=== PATIENT | male | born 1965 | race Caucasian/White ===

== ENCOUNTER 2018-10-01 23:42 | Inpatient (IN) | payer MEDICARE, OTHER ==
[2018-10-01] MEDS ORDERED: ONDANSETRON 4 MG/2 ML VIAL IVP STA (23:50)
[2018-10-01] MEDS ORDERED: SODIUM CHLORIDE 0.9% 2,000 ML IV STA (23:50)
[2018-10-02 00:26] LABS: Basophils # (A) 0.1 k/uL (0-0.2); Basophils % (A) 0 %; Eosinophils # (A) 0.1 k/uL (0-0.7); Eosinophils % (A) 0 %; HCT 43.5 % (39.0-53.0); HGB 13.6 gm/dL (13.0-17.5); Hypochromasia Slight; Lymphocytes # (A) 0.7 k/uL (1.0-4.8); Lymphocytes % (A) 3 %; MCH 28.5 pg (25.0-35.0); MCHC 31.2 g/dL (31.0-37.0); MCV 91.2 fL (80.0-100.0); Mean Platelet Volume 8.5; Monocytes # (A) 0.8 k/uL (0-1.0); Monocytes % (A) 3 %; Neutrophils # (A) 20.7 k/uL (1.3-7.7); Neutrophils % (A) 93 %; Platelet Count 416 k/uL (150-450); RBC 4.77 m/uL (4.30-5.90); RDW 13.3 % (11.5-15.5); WBC 22.4 k/uL (3.8-10.6)
[2018-10-02 00:29] LABS: Glucose,Whole Blood >600 mg/dL (75-99)
[2018-10-02 00:35] LABS: ALT 38 U/L (21-72); AST 18 U/L (17-59); Albumin 3.9 g/dL (3.5-5.0); Alkaline Phosphatase 144 U/L (38-126); Amylase 42 U/L (30-110); Blood Urea Nitrogen 52 mg/dL (9-20); Calcium 9.3 mg/dL (8.4-10.2); Chloride 95 mmol/L (98-107); Lipase 164 U/L (23-300); Sodium 132 mmol/L (137-145); Total Bilirubin 0.5 mg/dL (0.2-1.3); Total Protein 6.2 g/dL (6.3-8.2)
--- NOTE | 2018-10-02 00:46 | XR ---
EXAM: XR Abdomen, 2 Views CLINICAL HISTORY: Pain TECHNIQUE: Frontal view of the abdomen/pelvis with upright view of the abdomen. COMPARISON: No relevant prior studies available. FINDINGS: Intraperitoneal space: No free air. Gastrointestinal tract: A few prominent air-filled loops of small bowel seen throughout the abdomen measured to 3.1 cm. [id number] amount of stool throughout the colon. Bones/joints: Unremarkable. Vasculature: Vascular calcifications. IMPRESSION: A few prominent air-filled loops of small bowel seen throughout the abdomen measured to 3.1 cm. Findings may represent small bowel ileus or small bowel obstruction.
--- NOTE | 2018-10-02 00:56 | ED ---
Nausea/Vomiting/Diarrhea HPI - General Chief complaint: Nausea/Vomiting/Diarrhea Stated complaint: hyperglycemia Time Seen by Provider: 10/01/18 23:50 Source: EMS Mode of arrival: EMS Limitations: no limitations - History of Present Illness Initial comments: Freddie is a type I IDDM who presents to the ED today via EMS for evaluation of nausea, vomiting and uncontrolled blood sugars. Patient reports he has been experiencing nausea and vomiting for 4 days, he reports feeling like he got hit by a truck today which prompted him to come to the ER for further evaluation. Patient cannot recall the last time he was in DKA, reports that his sugars are usually well controlled. - Related Data Allergies Allergy/AdvReac Type Severity Reaction Status Date / Time No Known Allergies Allergy Verified 10/01/18 23:49 Review of Systems ROS Statement: Those systems with pertinent positive or pertinent negative responses have been documented in the HPI. ROS Other: All systems not noted in ROS Statement are negative. 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 EYES: Left eye severe cataract Artificial Right eye Patient is legally blind PULMONARY: Kussmaul respirations CARDIOVASCULAR: Tachycardiac, regular ABDOMEN: Soft and nontender with normal bowel sounds. SKIN: Diaphoretic : Deferred NEUROLOGIC: Patient is alert and oriented x3. Moving all extremities spontaneously MUSCULOSKELETAL: Normal extremities with adequate strength and full range of motion. No lower extremity swelling or edema. No calf tenderness. PSYCHIATRIC: Normal psychiatric evaluation. Limitations: no limitations Limitations: no limitations Course Vital Signs 10/01/18 10/01/18 10/02/18 23:46 23:50 00:00 Temperature 97.9 F Pulse Rate 124 H Respiratory 22 Rate Blood Pressure 180/74 180/74 180/74 O2 Sat by Pulse 100 100 100 Oximetry 10/02/18 10/02/18 10/02/18 00:10 00:20 00:30 Temperature Pulse Rate 126 H Respiratory 15 Rate Blood Pressure 157/52 178/62 178/62 O2 Sat by Pulse 100 100 98 Oximetry Medical Decision Making - Medical Decision Making The patient was seen and evaluated immediately upon arrival to the emergency department History and physical exam are concerning for DKA, the patient is tachycardic with 2 small respirations, smells of ketones [id number] glucose reading high The axis was obtained by EMS, patient receiving IV fluids received Zofran in rou te to the hospital Additional 2 L of IV fluid ordered Labs were ordered Labs consistent with severe DKA most notably pH is 7.0 bicarb is less than 5, pCO2 is 17, glucose is 774 and potassium is elevated at 6.7 An additional 500 mL of IV fluid was ordered to complete a 30 mL/kg bolus Continuous IV fluids were ordered Insulin bolus and infusion were ordered per DKA protocol Patient care discussed with Dr. Miranda who accepts patient to ICU for DKA - Lab Data Result diagrams: 10/02/18 00:10 10/02/18 00:10 Lab Results 10/02/18 10/02/18 10/02/18 Range/Units 00:10 00:10 00:10 WBC 22.4 H (3.8-10.6) k/uL RBC 4.77 (4.30-5.90) m/uL Hgb 13.6 (13.0-17.5) gm/dL Hct 43.5 (39.0-53.0) % MCV 91.2 (80.0-100.0) fL MCH 28.5 (25.0-35.0) pg MCHC 31.2 (31.0-37.0) g/dL RDW 13.3 (11.5-15.5) % Plt Count 416 (150-450) k/uL Neutrophils % 93 % Lymphocytes % 3 % Monocytes % 3 % Eosinophils % 0 % Basophils % 0 % Neutrophils # 20.7 H (1.3-7.7) k/uL Lymphocytes # 0.7 L (1.0-4.8) k/uL Monocytes # 0.8 (0-1.0) k/uL Eosinophils # 0.1 (0-0.7) k/uL Basophils # 0.1 (0-0.2) k/uL Hypochromasia Slight VBG pH 7.05 L* (7.31-7.41) VBG pCO2 17 L* (37-51) mmHg VBG HCO3 5 L* (24-28) mmol/L Sodium 132 L (137-145) mmol/L Potassium 6.7 H* (3.5-5.1) mmol/L Chloride 95 L (98-107) mmol/L Carbon Dioxide <5 L* (22-30) mmol/L Anion Gap mmol/L BUN 52 H (9-20) mg/dL Creatinine 2.24 H (0.66-1.25) mg/dL Est GFR (CKD-EPI)AfAm 37 (>60 ml/min/1.73 sqM) Est GFR (CKD-EPI)NonAf 32 (>60 ml/min/1.73 sqM) Glucose 774 H* (74-99) mg/dL POC Glucose (mg/dL) (75-99) mg/dL POC Glu Corrective Therapy Aide ID Plasma Lactic Acid Fiedl (0.7-2.0) mmol/L Calcium 9.3 (8.4-10.2) mg/dL Total Bilirubin 0.5 (0.2-1.3) mg/dL AST 18 (17-59) U/L ALT 38 (21-72) U/L Alkaline Phosphatase 144 H (38-126) U/L Troponin I (0.000-0.034) ng/mL Total Protein 6.2 L (6.3-8.2) g/dL Albumin 3.9 (3.5-5.0) g/dL Amylase 42 (30-110) U/L Lipase 164 (23-300) U/L Urine Color Urine Appearance (Clear) Urine pH (5.0-8.0) Ur Specific [place] (1.001-1.035) Urine Protein (Negative) Urine Glucose (UA) (Negative) Urine Ketones (Negative) Urine Blood (Negative) Urine Nitrite (Negative) Urine Bilirubin (Negative) Urine Urobilinogen (<2.0) mg/dL Ur Leukocyte Esterase (Negative) Urine RBC (0-5) /hpf Acetone, Qual Positive (Negative) 10/02/18 10/02/18 10/02/18 Range/Units 00:10 00:10 00:10 WBC (3.8-10.6) k/uL RBC (4.30-5.90) m/uL Hgb (13.0-17.5) gm/dL Hct (39.0-53.0) % MCV (80.0-100.0) fL MCH (25.0-35.0) pg MCHC (31.0-37.0) g/dL RDW (11.5-15.5) % Plt Count (150-450) k/uL Neutrophils % % Lymphocytes % % Monocytes % % Eosinophils % % Basophils % % Neutrophils # (1.3-7.7) k/uL Lymphocytes # (1.0-4.8) k/uL Monocytes # (0-1.0) k/uL Eosinophils # (0-0.7) k/uL Basophils # (0-0.2) k/uL Hypochromasia VBG pH (7.31-7.41) VBG pCO2 (37-51) mmHg VBG HCO3 (24-28) mmol/L Sodium (137-145) mmol/L Potassium (3.5-5.1) mmol/L Chloride (98-107) mmol/L Carbon Dioxide (22-30) mmol/L Anion Gap mmol/L BUN (9-20) mg/dL Creatinine (0.66-1.25) mg/dL Est GFR (CKD-EPI)AfAm (>60 ml/min/1.73 sqM) Est GFR (CKD-EPI)NonAf (>60 ml/min/1.73 sqM) Glucose (74-99) mg/dL POC Glucose (mg/dL) (75-99) mg/dL POC Glu Corrective Therapy Aide ID Plasma Lactic Acid Fidel 3.5 H* (0.7-2.0) mmol/L Calcium (8.4-10.2) mg/dL Total Bilirubin (0.2-1.3) mg/dL AST (17-59) U/L ALT (21-72) U/L Alkaline Phosphatase (38-126) U/L Troponin I 0.015 (0.000-0.034) ng/mL Total Protein (6.3-8.2) g/dL Albumin (3.5-5.0) g/dL Amylase (30-110) U/L Lipase (23-300) U/L Urine Color Light Yellow Urine Appearance Clear (Clear) Urine pH 5.0 (5.0-8.0) Ur Specific [place] 1.019 (1.001-1.035) Urine Protein 1+ H (Negative) Urine Glucose (UA) 4+ H (Negative) Urine Ketones 3+ H (Negative) Urine Blood Trace H (Negative) Urine Nitrite Negative (Negative) Urine Bilirubin Negative (Negative) Urine Urobilinogen <2.0 (<2.0) mg/dL Ur Leukocyte Esterase Negative (Negative) Urine RBC <1 (0-5) /hpf Acetone, Qual (Negative) 10/02/18 10/02/18 Range/Units 00:27 01:20 WBC (3.8-10.6) k/uL RBC (4.30-5.90) m/uL Hgb (13.0-17.5) gm/dL Hct (39.0-53.0) % MCV (80.0-100.0) fL MCH (25.0-35.0) pg MCHC (31.0-37.0) g/dL RDW (11.5-15.5) % Plt Count (150-450) k/uL Neutrophils % % Lymphocytes % % Monocytes % % Eosinophils % % Basophils % % Neutrophils # (1.3-7.7) k/uL Lymphocytes # (1.0-4.8) k/uL Monocytes # (0-1.0) k/uL Eosinophils # (0-0.7) k/uL Basophils # (0-0.2) k/uL Hypochromasia VBG pH (7.31-7.41) VBG pCO2 (37-51) mmHg VBG HCO3 (24-28) mmol/L Sodium (137-145) mmol/L Potassium (3.5-5.1) mmol/L Chloride (98-107) mmol/L Carbon Dioxide (22-30) mmol/L Anion Gap mmol/L BUN (9-20) mg/dL Creatinine (0.66-1.25) mg/dL Est GFR (CKD-EPI)AfAm (>60 ml/min/1.73 sqM) Est GFR (CKD-EPI)NonAf (>60 ml/min/1.73 sqM) Glucose (74-99) mg/dL POC Glucose (mg/dL) >600 H >600 H (75-99) mg/dL POC Glu Corrective Therapy Aide Tomasz Copeland, Tomasz Plasma Lactic Acid Fidel (0.7-2.0) mmol/L Calcium (8.4-10.2) mg/dL Total Bilirubin (0.2-1.3) mg/dL AST (17-59) U/L ALT (21-72) U/L Alkaline Phosphatase (38-126) U/L Troponin I (0.000-0.034) ng/mL Total Protein (6.3-8.2) g/dL Albumin (3.5-5.0) g/dL Amylase (30-110) U/L Lipase (23-300) U/L Urine Color Urine Appearance (Clear) Urine pH (5.0-8.0) Ur Specific [place] (1.001-1.035) Urine Protein (Negative) Urine Glucose (UA) (Negative) Urine Ketones (Negative) Urine Blood (Negative) Urine Nitrite (Negative) Urine Bilirubin (Negative) Urine Urobilinogen (<2.0) mg/dL Ur Leukocyte Esterase (Negative) Urine RBC (0-5) /hpf Acetone, Qual (Negative) - EKG Data -: EKG Interpreted by Me EKG Comments: EKG was ordered due to tachycardia next line EKG obtained at 12:17 AM, rate is 125 rhythm is sinus tachycardia there is a normal axis, there are normal intervals, ID 140, QRS 92, QTc 464 there are no acute ST elevations or depressions edition no significant T-wave abnormalities no evidence of acute ischemia or infarction. Critical Care Time Critical Care Time: Yes Total Critical Care Time: 30 Critical Care Time: Critical Care Critical care time was exclusive of separately billable procedures and treating other patients. Critical care was necessary to treat or prevent imminent or life-threatening deterioration. Critical care was time spent personally by me on the following activities: development of treatment plan with patient or surrogate, discussions with consultants, discussions with primary provider, evaluation of patient's response to treatment, examination of patient, obtaining history from patient or surrogate, ordering and performing treatments and interventions, ordering and review of laboratory studies, ordering and review of radiographic studies, pulse oximetry, re-evaluation of patient's condition and review of old charts. Disposition Clinical Impression: DKA (diabetic ketoacidoses) Disposition: ADMITTED IP TO THIS [facility] Condition: Serious Referrals: Ruma Miranda MD [Primary Care Provider] - 1-2 days
[2018-10-02 00:58] LABS: VBG PH 7.05 (7.31-7.41)
[2018-10-02] MEDS ORDERED: INSULIN REGULAR BOLUS (FROM DRIP BAG) IV PRN (00:58)
[2018-10-02 00:59] LABS: Glucose 774 mg/dL (74-99); Potassium 6.7 mmol/L (3.5-5.1)
[2018-10-02 01:00] LABS: Carbon Dioxide <5 mmol/L (22-30)
[2018-10-02] MEDS ORDERED: Potassium Replacement Protocol 1 EACH MISC MISCELLANE PRN (01:00)
[2018-10-02] MEDS ORDERED: Magnesium Replacement Protocol 1 EACH MISC MISCELLANE PRN (01:00)
[2018-10-02] MEDS ORDERED: SODIUM CHLORIDE 0.9% 500 ML 500 ML IV ONE (01:03)
[2018-10-02 01:22] LABS: Glucose,Whole Blood >600 mg/dL (75-99)
[2018-10-02 01:23] LABS: Appearance,Urine Clear (Clear); Bilirubin,Urine Negative (Negative); Blood,Urine Trace (Negative); Color,Urine Light Yellow; Glucose,Urine (UA) 4+ (Negative); Leukocyte Esterase,Urine Negative (Negative); Nitrite,Urine Negative (Negative); Protein,Urine 1+ (Negative); RBC,Urine <1 /hpf (0-5); Specific Gravity,Urine 1.019 (1.001-1.035); Urobilinogen,Urine <2.0 mg/dL (<2.0)
[2018-10-02 01:38] LABS: Ketones,Urine 3+ (Negative)
[2018-10-02] MEDS: INSULIN REGULAR 100 UNIT in SODIUM CHLORIDE 0.9% 100 ML IV SCH ×2 (01:43→12:35)
[2018-10-02] MEDS: SODIUM CHLORIDE 0.9% 1,000 ML IV SCH ×4 (01:57→16:17)
[2018-10-02] MEDS ORDERED: SODIUM CHLORIDE 0.9% 2,000 ML IV STA (02:00)
[2018-10-02 02:23] LABS: Glucose,Whole Blood >600 mg/dL (75-99)
[2018-10-02 03:13] LABS: Glucose,Whole Blood >600 mg/dL (75-99)
[2018-10-02 03:50] LABS: Glucose,Whole Blood >600 mg/dL (75-99)
[2018-10-02 03:55] LABS: Basophils # (A) 0.1 k/uL (0-0.2); Basophils % (A) 0 %; Eosinophils # (A) 0.3 k/uL (0-0.7); Eosinophils % (A) 1 %; HCT 43.5 % (39.0-53.0); HGB 13.3 gm/dL (13.0-17.5); Hypochromasia Marked; Lymphocytes # (A) 0.6 k/uL (1.0-4.8); Lymphocytes % (A) 3 %; MCHC 30.7 g/dL (31.0-37.0); MCV 94.7 fL (80.0-100.0); Mean Platelet Volume 8.7; Monocytes # (A) 1.1 k/uL (0-1.0); Monocytes % (A) 5 %; Neutrophils # (A) 21.3 k/uL (1.3-7.7); Neutrophils % (A) 91 %; Platelet Count 362 k/uL (150-450); RDW 13.2 % (11.5-15.5); WBC 23.5 k/uL (3.8-10.6)
[2018-10-02 04:03] LABS: Blood Urea Nitrogen 51 mg/dL (9-20); Calcium 8.4 mg/dL (8.4-10.2); Chloride 106 mmol/L (98-107); Magnesium 2.5 mg/dL (1.6-2.3); Sodium 137 mmol/L (137-145)
[2018-10-02 04:24] LABS: Glucose 672 mg/dL (74-99); Potassium 6.1 mmol/L (3.5-5.1)
[2018-10-02 04:25] LABS: Carbon Dioxide <5 mmol/L (22-30)
[2018-10-02 04:29] LABS: Phosphorus 9.2 mg/dL (2.5-4.5)
[2018-10-02] MEDS ORDERED: ONDANSETRON 4 MG/2 ML VIAL IVP PRN (05:12)
[2018-10-02 05:15] LABS: Glucose,Whole Blood 520 mg/dL (75-99)
[2018-10-02 06:11] LABS: Glucose,Whole Blood 439 mg/dL (75-99)
[2018-10-02 07:15] LABS: Glucose,Whole Blood 418 mg/dL (75-99)
[2018-10-02 08:20] LABS: Glucose,Whole Blood 346 mg/dL (75-99)
[2018-10-02 08:47] LABS: Potassium 4.7 mmol/L (3.5-5.1)
[2018-10-02 09:01] LABS: Glucose,Whole Blood 338 mg/dL (75-99)
--- NOTE | 2018-10-02 09:59 | XR ---
EXAMINATION TYPE: XR chest 1V portable DATE OF EXAM: 10/02/2018 COMPARISON: NONE HISTORY: DKA TECHNIQUE: Single frontal view of the chest is obtained. FINDINGS: There is no focal air space opacity, pleural effusion, or pneumothorax seen. The cardiac silhouette size is within normal limits. The osseous structures are intact. Arthropathy of the shou lders. IMPRESSION: No acute process.
[2018-10-02 10:10] LABS: Glucose,Whole Blood 276 mg/dL (75-99)
[2018-10-02] MEDS: D5-0.45% NACL WITH KCL 20MEQ/L 1,000 ML IV SCH ×2 (11:31→18:33)
[2018-10-02 11:39] LABS: Glucose,Whole Blood 223 mg/dL (75-99)
[2018-10-02 12:07] LABS: Glucose,Whole Blood 178 mg/dL (75-99)
[2018-10-02 13:17] LABS: Glucose,Whole Blood 140 mg/dL (75-99)
[2018-10-02 13:25] LABS: Calcium 8.2 mg/dL (8.4-10.2); Phosphorus 2.7 mg/dL (2.5-4.5); Potassium 4.3 mmol/L (3.5-5.1)
[2018-10-02 13:58] LABS: Glucose,Whole Blood 127 mg/dL (75-99)
--- NOTE | 2018-10-02 14:00 | P.CNPUL ---
History of Present Illness Consult date: 10/02/18 Chief complaint: Altered mental status History of present illness: a 53-year-old male patient with type 1 diabetes mellitus at a very yo kobe age and the patient is legally blind and the patient has been maintained on insulin and he receives Levemir insulin 46 units twice a day twice a day along with Humalog 10 units twice a day with meals. The patient is also on a combination of Actos 15 mg by mouth daily. The patient reports that his blood sugars have been under poor control and his HbA1c has been above 10. Apparently for the past few days the patient has been having nausea and vomiting and dehydration. He states that he was still taken his insulin. Subsequently became quite lethargic and obtunded and he had diminished level of consciousness and for that reason he was brought into the hospital by his girlfriend. In the emergency department the patient was found to be in DKA. The patient was given 3 L of IV fluids and started on nitroglycerin drip. Initial blood showed that the patient's serum bicarbonate less than 5, chloride level is 95, potassium level was 6.7, sugar was 7 and 74, white blood count was 22, BUN was 51, creatinine was 2.1. The patient had a lactic acid level of 3.5. Anion gap was also elevated. With initiation of fluids and insulin drip, the anion gap has been gradually improving and the serum bicarb currently is up to 15 with anion gap of 10. Also the lactic acid level is dropped down to 2.2. The patient's initial pH was 7.05. His potassium level is down to 4.3. LFTs are within normal limits. Amylase and lipase are within normal limits. LFTs are within normal limits. Cardiac enzymes are within normal limits. Along with the treatment, the patient has gradual improvement in his mentation and this morning he seems a much more awake and alert compared to yesterday. Review of Systems ROS unobtainable: due to mental status Eyes: bilateral blurred vision, bilateral bulging eye, bilateral decreased vision, bilateral loss of peripheral vision, bilateral loss of vision Ears: deny: decreased hearing, ear discharge, earache, tinnitus Ears, nose, mouth and throat: Denies headache, Denies sore throat Cardiovascular: Reports decreased exercise tolerance, Reports shortness of breath Respiratory: Reports dyspnea Gastrointestinal: Reports nausea, Reports vomiting Genitourinary: Reports erectile dysfunction, Reports nocturia, Reports polyuria, Reports urinary frequency Musculoskeletal: Reports gait dysfunction, Reports muscle weakness Musculoskeletal: absent: ankle pain, ankle stiffness, ankle swelling Integumentary: Reports as per HPI Neurological: Reports weakness Psychiatric: Reports confusion, Reports hypersomnia Endocrine: Reports fatigue Hematologic/Lymphatic: Reports as per HPI Allergic/Immunologic: Reports as per HPI Past Medical History Past Medical History: Diabetes Mellitus Additional Past Medical History / Comment(s): DM type 1 "diagnosed when I was 18 months", legal blindness History of Any Multi-Drug Resistant Organisms: None Reported Past Surgical History: Orthopedic Surgery Additional Past Surgical History / Comment(s): 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 Sister(s) Family Medical History: Diabetes Mellitus Medications and Allergies Home Medications Medication Instructions Recorded Confirmed Type Amitriptyline HCl [Elavil] 50 mg PO HS 10/02/18 10/02/18 History Atorvastatin [Lipitor] 40 mg PO HS 10/02/18 10/02/18 History Enalapril [Vasotec] 20 mg PO DAILY 10/02/18 10/02/18 History Insulin Aspart [NovoLOG] See Protocol SQ TID-W/MEALS 10/02/18 10/02/18 History Insulin Detemir (Levemir) [Levemir] 46 unit SQ DAILY 10/02/18 10/02/18 History Pioglitazone HCl [Actos] 15 mg PO DAILY 10/02/18 10/02/18 History Tasimelteon [Hetlioz] 20 mg PO DAILY 10/02/18 10/02/18 History Allergies Allergy/AdvReac Type Severity Reaction Status Date / Time No Known Allergies Allergy Verified 10/02/18 09:32 Physical Exam Vitals: Vital Signs Temp Pulse Resp BP Pulse Ox 10/02/18 13:30 101 H 14 157/74 98 10/02/18 13:00 99 14 152/73 96 10/02/18 12:30 105 H 12 156/69 97 10/02/18 12:00 97.8 F 105 H 16 141/71 97 10/02/18 11:30 105 H 20 162/69 97 10/02/18 11:00 112 H 19 159/69 97 10/02/18 10:30 110 H 14 152/67 97 10/02/18 10:00 113 H 11 L 158/70 98 10/02/18 09:30 114 H 14 98 10/02/18 09:00 112 H 18 154/70 98 10/02/18 08:30 112 H 16 145/71 97 10/02/18 08:00 97.7 F 114 H 20 147/66 97 10/02/18 07:30 115 H 15 150/68 98 10/02/18 07:00 118 H 17 145/65 98 10/02/18 06:45 117 H 18 133/64 98 10/02/18 06:30 118 H 17 138/68 98 10/02/18 06:15 118 H 18 140/64 98 10/02/18 06:00 120 H 15 136/63 98 10/02/18 05:45 121 H 16 141/64 98 10/02/18 05:30 123 H 16 138/66 98 10/02/18 05:15 122 H 19 141/61 98 10/02/18 05:00 122 H 19 122/62 99 10/02/18 04:45 121 H 18 123/62 99 10/02/18 04:30 96.8 F L 120 H 18 113/62 99 10/02/18 04:15 121 H 17 121/58 99 10/02/18 04:00 120 H 15 129/63 99 10/02/18 03:48 24 99 10/02/18 03:45 121 H 18 139/54 99 10/02/18 03:30 118 H 21 147/63 99 10/02/18 03:20 120 H 22 147/63 99 10/02/18 03:18 95 F L 121 H 22 99 10/02/18 02:20 123 H 18 153/56 10/02/18 02:10 129 H 23 142/47 10/02/18 02:00 125 H 18 159/83 10/02/18 01:50 126 H 15 159/83 10/02/18 01:40 125 H 22 166/81 10/02/18 01:30 129 H 32 H 172/75 10/02/18 01:29 97 F L 10/02/18 01:20 125 H 16 172/75 10/02/18 01:10 128 H 31 H 181/70 10/02/18 01:00 130 H 30 H 170/74 98 10/02/18 00:50 126 H 18 170/74 100 10/02/18 00:40 173/59 10/02/18 00:36 173/59 10/02/18 00:30 126 H 15 178/62 98 10/02/18 00:20 178/62 100 10/02/18 00:10 157/52 100 10/02/18 00:00 180/74 100 10/01/18 23:50 180/74 100 10/01/18 23:46 97.9 F 124 H 22 180/74 100 Intake and Output 10/01/18 10/02/18 10/02/18 22:59 06:59 14:59 Intake Total 2440.350 1258.791 Output Total 2175 700 Balance 265.350 558.791 Intake: IV 2400 1200 Sodium Chloride 0.9% 1, 400 1200 000 ml @ 200 mls/hr IV . Q5H [place] Rx#:[id number] Sodium Chloride 0.9% 2, 2000 000 ml @ 999 mls/hr IV . Q2H1M [facility] Rx#:[id number] Intake, IV Titration 40.350 58.791 Amount Insulin Regular 100 unit 40.350 58.791 In Sodium Chloride 0.9% 100 ml @ 0.1 UNITS/KG/HR 8.246 mls/hr IV .[id number] [place] Rx#:[id number] Output: Urine 2175 700 Other: Voiding Method Indwelling Catheter # Voids 1 Weight 81.647 kg 81.647 kg Gen. appearance, comfortable waking up with an insulin drip in mental status improved considerably since yesterday. Following commands and acid questions this morning. Head exam was generally normal. There was no scleral icterus or corneal arcus. Mucous membranes were moist. The patient has cataracts in both eyes most on the left Neck was supple and without jugular venous distension, thyromegaly, or carotid bruits. Carotids were easily palpable bilaterally. There was no adenopathy. Cardiac exam revealed the PMI to be normally situated and sized. The rhythm was regular and no extrasystoles were noted during several minutes of auscultation. The first and second heart sounds were normal and physiologic splitting of the second heart sound was noted. There is a systolic ejection murmur grade 4/6 heard throughout the precordium. Lungs were clear to auscultation and percussion, and with normal diaphragmatic e xcursion. No wheezes or rales were noted. Abdominal exam revealed normal bowel sounds. The abdomen was soft, non-tender, and without masses, organomegaly, or appreciable enlargement of the abdominal aorta. Examination of the extremities revealed easily palpable radial, femoral and pedal pulses. There was no cyanosis, clubbing or edema. Examination of the skin revealed no evidence of significant rashes, suspicious appearing nevi or other concerning lesions. Neurologically encephalopathic secondary to DKA and this is gradually improving. Neurologic exam is nonfocal. He is moving all 4 extremities without any limitation. Results - Laboratory Findings CBC and BMP: 10/02/18 03:42 10/02/18 12:36 Abnormal lab findings: Abnormal Labs 10/02/18 10/02/18 10/02/18 00:10 00:10 00:10 WBC 22.4 H MCHC Neutrophils # 20.7 H Lymphocytes # 0.7 L Monocytes # VBG pH 7.05 L* VBG pCO2 17 L* VBG HCO3 5 L* Sodium 132 L Potassium 6.7 H* Chloride 95 L Carbon Dioxide <5 L* BUN 52 H Creatinine 2.24 H Glucose 774 H* POC Glucose (mg/dL) Plasma Lactic Acid Fidel Calcium Phosphorus Magnesium Alkaline Phosphatase 144 H Total Protein 6.2 L Urine Protein Urine Glucose (UA) Urine Ketones Urine Blood 10/02/18 10/02/18 10/02/18 00:10 00:10 00:27 WBC MCHC Neutrophils # Lymphocytes # Monocytes # VBG pH VBG pCO2 VBG HCO3 Sodium Potassium Chloride Carbon Dioxide BUN Creatinine Glucose POC Glucose (mg/dL) >600 H Plasma Lactic Acid Fidel 3.5 H* Calcium Phosphorus Magnesium Alkaline Phosphatase Total Protein Urine Protein 1+ H Urine Glucose (UA) 4+ H Urine Ketones 3+ H Urine Blood Trace H 10/02/18 10/02/18 10/02/18 01:20 02:20 02:57 WBC MCHC Neutrophils # Lymphocytes # Monocytes # VBG pH VBG pCO2 VBG HCO3 Sodium Potassium Chloride Carbon Dioxide BUN Creatinine Glucose POC Glucose (mg/dL) >600 H >600 H >600 H Plasma Lactic Acid Fidel Calcium Phosphorus Magnesium Alkaline Phosphatase Total Protein Urine Protein Urine Glucose (UA) Urine Ketones Urine Blood 10/02/18 10/02/18 10/02/18 03:42 03:42 03:46 WBC 23.5 H MCHC 30.7 L Neutrophils # 21.3 H Lymphocytes # 0.6 L Monocytes # 1.1 H VBG pH VBG pCO2 VBG HCO3 Sodium Potassium 6.1 H* Chloride Carbon Dioxide <5 L* BUN 51 H Creatinine 2.11 H Glucose 672 H* POC Glucose (mg/dL) >600 H Plasma Lactic Acid Fidel Calcium Phosphorus 9.2 H* Magnesium 2.5 H Alkaline Phosphatase Total Protein Urine Protein Urine Glucose (UA) Urine Ketones Urine Blood 10/02/18 10/02/18 10/02/18 05:13 05:29 06:08 WBC MCHC Neutrophils # Lymphocytes # Monocytes # VBG pH VBG pCO2 VBG HCO3 Sodium Potassium Chloride Carbon Dioxide BUN Creatinine Glucose POC Glucose (mg/dL) 520 H 439 H Plasma Lactic Acid Fidel 2.2 H* Calcium Phosphorus Magnesium Alkaline Phosphatase Total Protein Urine Protein Urine Glucose (UA) Urine Ketones Urine Blood 10/02/18 10/02/18 10/02/18 07:02 08:06 08:11 WBC MCHC Neutrophils # Lymphocytes # Monocytes # VBG pH VBG pCO2 VBG HCO3 Sodium Potassium Chloride 114 H Carbon Dioxide 10 L BUN 51 H Creatinine 1.94 H Glucose 337 H POC Glucose (mg/dL) 418 H 346 H Plasma Lactic Acid Fidel Calcium Phosphorus Magnesium Alkaline Phosphatase Total Protein Urine Protein Urine Glucose (UA) Urine Ketones Urine Blood 10/02/18 10/02/18 10/02/18 08:58 10:07 11:02 WBC MCHC Neutrophils # Lymphocytes # Monocytes # VBG pH VBG pCO2 VBG HCO3 Sodium Potassium Chloride Carbon Dioxide BUN Creatinine Glucose POC Glucose (mg/dL) 338 H 276 H 223 H Plasma Lactic Acid Fidel Calcium Phosphorus Magnesium Alkaline Phosphatase Total Protein Urine Protein Urine Glucose (UA) Urine Ketones Urine Blood 10/02/18 10/02/18 10/02/18 12:05 12:36 13:14 WBC MCHC Neutrophils # Lymphocytes # Monocytes # VBG pH VBG pCO2 VBG HCO3 Sodium Potassium Chloride 116 H Carbon Dioxide 15 L BUN 47 H Creatinine 1.71 H Glucose 169 H POC Glucose (mg/dL) 178 H 140 H Plasma Lactic Acid Fidel Calcium 8.2 L Phosphorus Magnesium Alkaline Phosphatase Total Protein Urine Protein Urine Glucose (UA) Urine Ketones Urine Blood - Diagnostic Findings Chest x-ray: image reviewed Assessment and Plan Plan: 1 acute DKA with anion gap metabolic acidosis, improving with an insulin drip. 2 type 1 diabetes mellitus with poor blood sugar control 3 legal blindness 4 hyperlipidemia 5 leukocytosis secondary to DKA 6 acute kidney injury secondary to DKA 7 lactic acidosis, mild, improving 8 cardiac murmur Plan Continue insulin drip and switch this patient to D5 half-normal once the blood sugar is below 250 per hour protocol. Monitor the electrolytes. Monitor the anion gap acidosis. Monitor the serum bicarb. I would anticipate the patient's anion gap will completely closed and the serum bicarbonate with normalized by evening and following that the patient was switched to Levemir insulin. We'll check an echocardiogram as the patient had a cardiac murmur. Replace electrolytes. We'll continue to follow.
[2018-10-02 15:06] LABS: Glucose,Whole Blood 131 mg/dL (75-99)
[2018-10-02 16:15] LABS: Glucose,Whole Blood 124 mg/dL (75-99)
[2018-10-02 16:43] LABS: Calcium 7.9 mg/dL (8.4-10.2); Potassium 4.2 mmol/L (3.5-5.1)
[2018-10-02 17:02] LABS: Glucose,Whole Blood 122 mg/dL (75-99)
[2018-10-02 18:03] LABS: Glucose,Whole Blood 120 mg/dL (75-99)
[2018-10-02] MEDS: ATORVASTATIN 40 MG TAB PO SCH (18:33)
[2018-10-02] MEDS: TASIMELTEON 20 MG PO SCH (18:39)
[2018-10-02] MEDS: LISINOPRIL 20 MG TAB PO SCH (18:39)
[2018-10-02 19:01] LABS: Glucose,Whole Blood 145 mg/dL (75-99)
--- NOTE | 2018-10-02 19:07 | ECHOF ---
Referral Reason:positive murmur MEASUREMENTS -------- HEIGHT: 167.6 cm WEIGHT: 81.6 kg BP: IVSd: 1.4 cm (0.6 - 1.1) LVIDd: 2.9 cm (3.9 - 5.3) LVPWd: 1.4 cm (0.6 - 1.1) IVSs: 2.0 cm LVIDs: 1.8 cm LVPWs: 1.9 cm Ao Diam: 3.1 cm (2.0 - 3.7) AV Cusp: 1.9 cm (1.5 - 2.6) LA Diam: 3.4 cm (2.7 - 3.8) MV EXCURSION: 12.495 mm (> 18.000) MV EF SLOPE: 56 mm/s (70 - 150) EPSS: 0.8 cm MV E Jose R: 1.06 m/s MV DecT: 190 ms MV A Jose R: 1.29 m/s MV E/A Ratio: 0.82 AV maxP.89 mmHg AV meanP.70 mmHg AR PHT: 108 ms RAP: 5.00 mmHg RVSP: 20.61 mmHg FINDINGS -------- Resting tachycardia (HR>100bpm). This was a technically good study. The left ventricular size is normal. There is moderate concentric left ventricular hypertrophy. O verall left ventricular systolic function is normal with, an EF between 60 - 65 %. The right ventricle is normal in size. The left atrial size is normal. The right atrial size is normal. Aortic valve is trileaflet and is mildly thickened. Trace amount of aortic regurgitation. Peak/m ann marie gradient across the Aortic Valve is 16.89mmHg / 9.70mmHg. There is trace mitral regurgitation. Trace tricuspid regurgitation present. The right ventricular systolic pressure, as measured by Dopp ler, is 20.61mmHg. There is no pulmonic regurgitation present. The aortic root size is normal. Normal inferior vena cava with normal inspiratory collapse consistent with estimated right atrial pre ssure of 5 mmHg. There is no pericardial effusion. CONCLUSIONS -------- 1. Resting tachycardia (HR>100bpm). 2. This was a technically good study. 3. The left ventricular size is normal. 4. There is moderate concentric left ventricular hypertrophy. 5. Overall left ventricular systolic function is normal with, an EF between 60 - 65 %. 6. The right ventricle is normal in size. 7. The left atrial size is normal. 8. The right atrial size is normal. 9. Aortic valve is trileaflet and is mildly thickened. 10. Trace amount of aortic regurgitation. 11. Peak/mean gradient across the Aortic Valve is 16.89mmHg / 9.70mmHg. 12. There is trace mitral regurgitation. 13. Trace tricuspid regurgitation present. 14. The right ventricular systolic pressure, as measured by Doppler, is 20.61mmHg. 15. There is no pulmonic regurgitation present. 16. The aortic root size is normal. 17. Normal inferior vena cava with normal inspiratory collapse consistent with estimated right atrial pressure of 5 mmHg. 18. There is no pericardial effusion. FILM PROCESSING SHIFT SUPERVISOR: Ivana Peralta RDCS
[2018-10-02 20:02] LABS: Glucose,Whole Blood 139 mg/dL (75-99)
[2018-10-02 21:11] LABS: Calcium 7.7 mg/dL (8.4-10.2); Phosphorus 2.7 mg/dL (2.5-4.5)
[2018-10-02 21:19] LABS: Potassium 4.8 mmol/L (3.5-5.1)
[2018-10-02] MEDS ORDERED: ACETAMINOPHEN TAB 500 MG TAB PO PRN (21:52)
[2018-10-02] MEDS: INSULIN DETEMIR (LEVEMIR) 100 UNIT/ML SYR SQ SCH (21:58)
[2018-10-02 22:02] LABS: Glucose,Whole Blood 146 mg/dL (75-99)
[2018-10-02] MEDS: AMITRIPTYLINE HCL 50 MG TAB PO SCH (22:03)
--- NOTE | 2018-10-02 23:23 | HP ---
HISTORY AND PHYSICAL DATE OF ADMISSION: 10/02/2018. DATE OF SERVICE: 10/02/2018. PRESENTING COMPLAINT: Nausea, vomiting. HISTORY OF PRESENTING COMPLAINT: This is a very pleasant 53-year-old patient who is a type 1 diabetic since younger years. The patient has diabetic retinopathy with not even any perception of light and has some peripheral neuropathy. For 4 days patient started having nausea, vomiting which was getting worse and the patient presented to the ER. Denies any infective symptoms. The patient was in acute renal failure in the ER with a BUN of 52, creatinine 2.24, and blood glucose was 774. The patient's serum acetone was also positive. The patient was admitted to the ICU. Patient was started on IV fluids and insulin drip. The patient does state that he also has an element of chronic kidney disease but does not know his baseline creatinine. Sugars have started to respond to the same with IV fluids. When I saw this patient earlier today the anion gap was still not closed. REVIEW OF SYSTEMS: CONSTITUTIONAL: Weak, tired, rundown. HEENT: Poor eyesight. RESPIRATORY: None. CARDIOVASCULAR: None. GASTROINTESTINAL: As above. GENITOURINARY: None. MUSCULOSKELETAL: None. DERMATOLOGICAL: None. HEMATOLOGICAL: None. NEUROLOGICAL: Poor eyesight, cannot even perceive light. Some numbness and tingling in hands and feet. PAST MEDICAL HISTORY: Diabetes mellitus type 1 diagnosed when [id number] with legal blindness, peripheral neuropathy, and chronic kidney disease. 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 SOCIAL HISTORY: No smoking, alcohol rarely. Lives by himself. FAMILY HISTORY: Brain tumor. HOME MEDICATIONS: 1. Levemir 48 units subcu b.i.d. 2. Elavil 50 mg p.o. at bedtime. 3. NovoLog per scale. 4. Hetlion 20 mg p.o. daily. 5. Actos 50 mg p.o. daily. 6. Vasotec 20 mg p.o. daily. 7. Lipitor 40 mg at bedtime. ALLERGIES: None. PHYSICAL EXAMINATION: Vital signs on presentation, temperature 97.9, pulse 124, respirations 22, blood pressure 118/74, pulse ox 100 percent on room air. Repeat blood pressure 157/52. GENERAL APPEARANCE: Average build, lying in bed, tired-appearing. HEENT: Artificial right eye and damaged left eye. Oral cavity dry mucous membrane. External nose and ears normal. Is normal. NECK: JVD not raised. Mass not palpable. Respiratory effort normal. LUNGS: Fair air entry. CARDIOVASCULAR: 1st and 2nd sounds normal. No edema. ABDOMEN: Soft, nontender. Liver and spleen not palpable. LYMPHATIC: No lymph node palpable in the neck or axilla. PSYCHIATRY: Alert and oriented x3. Mood and affect nestor. NEUROLOGIC: Damaged right eye. No vision in the left eye. Decreased sensation distally. INVESTIGATIONS: Admission labs: White count 22.4, hemoglobin 10.6, potassium 6.7, BUN 52, creatinine 2.24, blood glucose 774. Serum acetone positive. EKG tracing personally reviewed by me shows sinus tachycardia and some ST-segment nonspecific changes. A 2D echocardiogram EF of 60 to 65 percent. No wall motion abnormality. Moderate concentric left ventricular hypertrophy. Chest x-ray film personally reviewed by me, portable film, no obvious infiltrate. ASSESSMENT: 1. Acute diabetic ketoacidosis. 2. Diabetes mellitus type 1, insulin dependent. 3. Diabetic retinopathy with poor eyesight. 4. Chronic kidney disease. The baseline is unknown secondary to diabetic nephropathy. 5. Acute renal failure likely prerenal from nausea and vomiting. 6. Leukocytosis likely from volume contraction. No obvious evidence of infection. 7. Hyperkalemia due to the renal failure. PLAN: Patient admitted to the ICU. Getting IV fluids and insulin drip. We will hold off patient's Vasotec for right now. When anion gap closes patient can be switched to Levemir. Diet advanced accordingly. Lovenox for DVT prophylaxis. Care was discussed with the patient. The patient is currently in the ICU. MMODL / IJN: [id number] /
[2018-10-02] MEDS: ENOXAPARIN 40 MG/0.4 ML SYRINGE SQ SCH (23:29)
[2018-10-02 23:35] LABS: Glucose,Whole Blood 159 mg/dL (75-99)
[2018-10-03 00:46] LABS: Calcium 7.7 mg/dL (8.4-10.2); Phosphorus 2.1 mg/dL (2.5-4.5); Potassium 4.1 mmol/L (3.5-5.1)
[2018-10-03] MEDS ORDERED: Phosphorus Replacement Protoco 1 EACH MISC MISCELLANE PRN (00:54)
[2018-10-03] MEDS ORDERED: SODIUM PHOSPHATE 10 MMOL in SODIUM CHLORIDE 0.9% 250 ML IVPB ONE (00:54)
[2018-10-03 00:57] LABS: Glucose,Whole Blood 168 mg/dL (75-99)
[2018-10-03] MEDS: D5-0.45% NACL WITH KCL 20MEQ/L 1,000 ML IV SCH ×4 (01:01→17:09)
[2018-10-03 01:49] LABS: Glucose,Whole Blood 176 mg/dL (75-99)
[2018-10-03 03:06] LABS: Glucose,Whole Blood 191 mg/dL (75-99)
[2018-10-03] MEDS: SODIUM CHLORIDE 0.9% 1,000 ML IV SCH (04:35)
[2018-10-03 04:42] LABS: Glucose,Whole Blood 211 mg/dL (75-99)
[2018-10-03 05:26] LABS: HCT 36.9 % (39.0-53.0); MCH 28.5 pg (25.0-35.0); MCHC 32.5 g/dL (31.0-37.0); Mean Platelet Volume 7.6; Platelet Count 226 k/uL (150-450); RBC 4.21 m/uL (4.30-5.90); RDW 12.9 % (11.5-15.5); WBC 11.3 k/uL (3.8-10.6)
[2018-10-03 05:30] LABS: MCV 87.6 fL (80.0-100.0)
[2018-10-03 05:42] LABS: Calcium 7.9 mg/dL (8.4-10.2); Potassium 4.4 mmol/L (3.5-5.1)
[2018-10-03 06:13] LABS: Glucose,Whole Blood 214 mg/dL (75-99)
[2018-10-03 07:13] LABS: Glucose,Whole Blood 264 mg/dL (75-99)
[2018-10-03] MEDS: LISINOPRIL 20 MG TAB PO SCH (07:59)
[2018-10-03 08:00] LABS: Glucose,Whole Blood 200 mg/dL (75-99)
[2018-10-03 09:09] LABS: Glucose,Whole Blood 186 mg/dL (75-99)
[2018-10-03 09:39] LABS: Calcium 7.9 mg/dL (8.4-10.2); Phosphorus 1.8 mg/dL (2.5-4.5); Potassium 4.1 mmol/L (3.5-5.1)
[2018-10-03] MEDS: TASIMELTEON 20 MG PO SCH (09:51)
[2018-10-03 10:09] LABS: Glucose,Whole Blood 181 mg/dL (75-99)
[2018-10-03] MEDS: INSULIN DETEMIR (LEVEMIR) 100 UNIT/ML SYR SQ SCH ×2 (11:28→21:16)
[2018-10-03 11:33] LABS: Glucose,Whole Blood 155 mg/dL (75-99)
[2018-10-03] MEDS: INSULIN REGULAR 100 UNIT in SODIUM CHLORIDE 0.9% 100 ML IV SCH (11:40)
[2018-10-03 12:21] LABS: Glucose,Whole Blood 136 mg/dL (75-99)
[2018-10-03] MEDS: INSULIN ASPART (NovoLOG) 100 UNIT/ML VIAL SQ SCH ×3 (12:22→21:16)
[2018-10-03] MEDS: SODIUM PHOSPHATE 10 MMOL in SODIUM CHLORIDE 0.9% 250 ML IVPB SCH ×2 (12:24→15:30)
--- NOTE | 2018-10-03 15:47 | P.PN ---
Subjective Progress Note Date: 10/03/18 Principal diagnosis: Altered mental status This is a 53-year-old male patient with type 1 diabetes mellitus at a very young age and the patient is legally blind and the patient has been maintained on insulin and he receives Levemir insulin 46 units twice a day twice a day along with Humalog 10 units twice a day with meals. The patient is also on a combination of Actos 15 mg by mouth daily. The patient reports that his blood sugars have been under poor control and his HbA1c has been above 10. Apparently for the past few days the patient has been having nausea and vomiting and dehydration. He states that he was still taken his insulin. Subsequently became quite lethargic and obtunded and he had diminished level of consciousness and for that reason he was brought into the hospital by his girlfriend. In the emergency department the patient was found to be in DKA. The patient was given 3 L of IV fluids and started on nitroglycerin drip. Initial blood showed that the patient's serum bicarbonate less than 5, chloride level is 95, potassium level was 6.7, sugar was 7 and 74, white blood count was 22, BUN was 51, creatinine was 2.1. The patient had a lactic acid level of 3.5. Anion gap was also elevated. With initiation of fluids and insulin drip, the anion gap has been gradually improving and the serum bicarb currently is up to 15 with anion gap of 10. Also the lactic acid level is dropped down to 2.2. The patient's initial pH was 7.05. His potassium level is down to 4.3. LFTs are within normal limits. Amylase and lipase are within normal limits. LFTs are within normal limits. Cardiac enzymes are within normal limits. Along with the treat ment, the patient has gradual improvement in his mentation and this morning he seems a much more awake and alert compared to yesterday. The patient is seen again today 10/03/2018 in follow-up in the intensive care unit. He is currently awake and alert in no acute distress. He is maintaining good O2 saturations in the 90s on room air. He's been afebrile. Hemodynamically stable. Urine culture reveals no growth. Sodium 138. Potassium 4.1. Chloride 1:15. Bicarb 18. Creatinine 1.09. Glucose 189. He is currently receiving D5 half-normal saline with 20 mEq of KCl at 150 MLS per hour. He'll be transitioned to his Levemir and sliding scale. Objective - Vital Signs Vital signs: Vital Signs Temp 98.3 F 10/03/18 13:42 Pulse 97 10/03/18 14:14 Resp 17 10/03/18 14:14 BP 178/78 10/03/18 13:42 Pulse Ox 96 10/03/18 13:42 Intake & Output 10/02/18 10/03/18 10/03/18 18:59 06:59 18:59 Intake Total 3116.111 1800 1566.151 Output Total 8551 804 5014 Balance 1991.111 975 566.151 Weight 81.647 kg 82.9 kg Intake: IV 2050 1800 1050 D5-0.45% NaCl with KCl 1050 1800 1050 20Meq/l 1,000 ml @ 150 mls/hr IV .[id number] [facility] Rx# :[id number] Sodium Chloride 0.9% 1, 1000 000 ml @ 200 mls/hr IV . Q5H [facility] Rx#:[id number] Intake, IV Titration 66.111 16.151 Amount Insulin Regular 100 unit 66.111 16.151 In Sodium Chloride 0.9% 100 ml @ 0.1 UNITS/KG/HR 8.246 mls/hr IV .[id number] [facility] Rx#:[id number] Oral 1000 500 Output: Urine 2028 832 6475 Other: Voiding Method Indwelling Catheter Indwelling Catheter Indwelling Catheter - Exam Gen. appearance, comfortable, mental status improved considerably since yesterday. Following commands and asking questions this morning. On room air. Head exam was generally normal. There was no scleral icterus or corneal arcus. Mucous membranes were moist. The patient has cataracts in both eyes most on the left Neck was supple and without jugular venous distension, thyromegaly, or carotid bruits. Carotids were easily palpable bilaterally. There was no adenopathy. Cardiac exam revealed the PMI to be normally situated and sized. The rhythm was regular and no extrasystoles were noted during several minutes of auscultation. The first and second heart sounds were normal and physiologic splitting of the second heart sound was noted. There is a systolic ejection murmur grade 4/6 heard throughout the precordium. Lungs were clear to auscultation and percussion, and with normal diaphragmatic excursion. No wheezes or rales were noted. Abdominal exam revealed normal bowel sounds. The abdomen was soft, non-tender, and without masses, organomegaly, or appreciable enlargement of the abdominal aorta. Examination of the extremities revealed easily palpable radial, femoral and pedal pulses. There was no cyanosis, clubbing or edema. Examination of the skin revealed no evidence of significant rashes, suspicious appearing nevi or other concerning lesions. Neurologically encephalopathic secondary to DKA and this is gradually improving. Neurologic exam is nonfocal. He is moving all 4 extremities without any limitation. - Labs CBC & Chem 7: 10/03/18 05:04 10/03/18 08:58 Labs: Abnormal Lab Results - Last 24 Hours (Table) 10/02/18 10/02/18 10/02/18 Range/Units 15:59 16:01 17:01 WBC (3.8-10.6) k/uL RBC (4.30-5.90) m/uL Hgb (13.0-17.5) gm/dL Hct (39.0-53.0) % Sodium (137-145) mmol/L Chloride 114 H (98-107) mmol/L Carbon Dioxide 15 L (22-30) mmol/L BUN 42 H (9-20) mg/dL Creatinine 1.53 H (0.66-1.25) mg/dL Glucose 126 H (74-99) mg/dL POC Glucose (mg/dL) 124 H 122 H (75-99) mg/dL Calcium 7.9 L (8.4-10.2) mg/dL Phosphorus (2.5-4.5) mg/dL 10/02/18 10/02/18 10/02/18 Range/Units 18:00 18:57 19:59 WBC (3.8-10.6) k/uL RBC (4.30-5.90) m/uL Hgb (13.0-17.5) gm/dL Hct (39.0-53.0) % Sodium (137-145) mmol/L Chloride (98-107) mmol/L Carbon Dioxide (22-30) mmol/L BUN (9-20) mg/dL Creatinine (0.66-1.25) mg/dL Glucose (74-99) mg/dL POC Glucose (mg/dL) 120 H 145 H 139 H (75-99) mg/dL Calcium (8.4-10.2) mg/dL Phosphorus (2.5-4.5) mg/dL 10/02/18 10/02/18 10/02/18 Range/Units 20:33 21:48 23:32 WBC (3.8-10.6) k/uL RBC (4.30-5.90) m/uL Hgb (13.0-17.5) gm/dL Hct (39.0-53.0) % Sodium 136 L (137-145) mmol/L Chloride 114 H (98-107) mmol/L Carbon Dioxide 14 L (22-30) mmol/L BUN 39 H (9-20) mg/dL Creatinine 1.28 H (0.66-1.25) mg/dL Glucose 137 H (74-99) mg/dL POC Glucose (mg/dL) 146 H 159 H (75-99) mg/dL Calcium 7.7 L (8.4-10.2) mg/dL Phosphorus (2.5-4.5) mg/dL 10/03/18 10/03/18 10/03/18 Range/Units 00:13 00:42 01:47 WBC (3.8-10.6) k/uL RBC (4.30-5.90) m/uL Hgb (13.0-17.5) gm/dL Hct (39.0-53.0) % Sodium 136 L (137-145) mmol/L Chloride 113 H (98-107) mmol/L Carbon Dioxide 15 L (22-30) mmol/L BUN 35 H (9-20) mg/dL Creatinine 1.27 H (0.66-1.25) mg/dL Glucose 168 H (74-99) mg/dL POC Glucose (mg/dL) 168 H 176 H (75-99) mg/dL Calcium 7.7 L (8.4-10.2) mg/dL Phosphorus 2.1 L (2.5-4.5) mg/dL 10/03/18 10/03/18 10/03/18 Range/Units 03:03 04:39 05:04 WBC 11.3 H (3.8-10.6) k/uL RBC 4.21 L (4.30-5.90) m/uL Hgb 12.0 L (13.0-17.5) gm/dL Hct 36.9 L (39.0-53.0) % Sodium (137-145) mmol/L Chloride (98-107) mmol/L Carbon Dioxide (22-30) mmol/L BUN (9-20) mg/dL Creatinine (0.66-1.25) mg/dL Glucose (74-99) mg/dL POC Glucose (mg/dL) 191 H 211 H (75-99) mg/dL Calcium (8.4-10.2) mg/dL Phosphorus (2.5-4.5) mg/dL 10/03/18 10/03/18 10/03/18 Range/Units 05:04 06:10 07:11 WBC (3.8-10.6) k/uL RBC (4.30-5.90) m/uL Hgb (13.0-17.5) gm/dL Hct (39.0-53.0) % Sodium (137-145) mmol/L Chloride 114 H (98-107) mmol/L Carbon Dioxide 16 L (22-30) mmol/L BUN 31 H (9-20) mg/dL Creatinine (0.66-1.25) mg/dL Glucose 210 H (74-99) mg/dL POC Glucose (mg/dL) 214 H 264 H (75-99) mg/dL Calcium 7.9 L (8.4-10.2) mg/dL Phosphorus (2.5-4.5) mg/dL 10/03/18 10/03/18 10/03/18 Range/Units 07:58 08:55 08:58 WBC (3.8-10.6) k/uL RBC (4.30-5.90) m/uL Hgb (13.0-17.5) gm/dL Hct (39.0-53.0) % Sodium (137-145) mmol/L Chloride 115 H (98-107) mmol/L Carbon Dioxide 18 L (22-30) mmol/L BUN 28 H (9-20) mg/dL Creatinine (0.66-1.25) mg/dL Glucose 189 H (74-99) mg/dL POC Glucose (mg/dL) 200 H 186 H (75-99) mg/dL Calcium 7.9 L (8.4-10.2) mg/dL Phosphorus 1.8 L (2.5-4.5) mg/dL 10/03/18 10/03/18 10/03/18 Range/Units 10:06 11:29 12:19 WBC (3.8-10.6) k/uL RBC (4.30-5.90) m/uL Hgb (13.0-17.5) gm/dL Hct (39.0-53.0) % Sodium (137-145) mmol/L Chloride (98-107) mmol/L Carbon Dioxide (22-30) mmol/L BUN (9-20) mg/dL Creatinine (0.66-1.25) mg/dL Glucose (74-99) mg/dL POC Glucose (mg/dL) 181 H 155 H 136 H (75-99) mg/dL Calcium (8.4-10.2) mg/dL Phosphorus (2.5-4.5) mg/dL Microbiology - Last 24 Hours (Table) 10/02/18 03:10 Urine Culture - Final Urine,Catheterized Assessment and Plan Assessment: Impression: 1 acute DKA with anion gap metabolic acidosis, improving with an insulin drip. To be transitioned to Levemir and sliding scale. 2 type 1 diabetes mellitus with poor blood sugar control 3 legal blindness 4 hyperlipidemia 5 leukocytosis secondary to DKA 6 acute kidney injury secondary to DKA 7 lactic acidosis, mild, improving 8 cardiac murmur echocardiogram reveals no significant valvular heart disease Plan The patient was seen and evaluated by Dr. Kwon. His gap is closed. Blood glucose improved. He'll be weaned off the heparin drip and transition to his Levemir and 8 Humalog sliding scale. He is cleared for transfer out of the intensive care unit today. We'll continue to follow make further recommendations based on his clinical status. I, the cosigning physician, performed a history & physical examination of the patient. Lungs sounds are clear. Maintaining good O2 saturations in the 90s on room air. I discussed the assessment and plan of care with my nurse practitioner, Brooklyn Correia. I attest to the above note as dictated by her.
[2018-10-03 17:26] LABS: Glucose,Whole Blood 171 mg/dL (75-99)
[2018-10-03 20:55] LABS: Glucose,Whole Blood 177 mg/dL (75-99)
[2018-10-03 21:12] LABS: Anion Gap 4 mmol/L; Blood Urea Nitrogen 22 mg/dL (9-20); Calcium 7.9 mg/dL (8.4-10.2); Carbon Dioxide 20 mmol/L (22-30); Chloride 114 mmol/L (98-107); Glucose 131 mg/dL (74-99); Phosphorus 2.4 mg/dL (2.5-4.5); Sodium 138 mmol/L (137-145)
[2018-10-03] MEDS: ATORVASTATIN 40 MG TAB PO SCH (21:16)
[2018-10-03] MEDS: ENOXAPARIN 40 MG/0.4 ML SYRINGE SQ SCH (21:16)
[2018-10-03] MEDS: AMITRIPTYLINE HCL 50 MG TAB PO SCH (21:52)
[2018-10-04] MEDS ORDERED: amLODIPine 5 MG TAB PO STA ×2 (01:53→13:06)
[2018-10-04 07:18] LABS: Glucose,Whole Blood 71 mg/dL (75-99)
[2018-10-04] MEDS: D5-0.45% NACL WITH KCL 20MEQ/L 1,000 ML IV SCH ×4 (07:33→11:56)
[2018-10-04] MEDS: INSULIN ASPART (NovoLOG) 100 UNIT/ML VIAL SQ SCH ×4 (07:34→21:44)
[2018-10-04 08:00] LABS: Anion Gap 4 mmol/L; Blood Urea Nitrogen 18 mg/dL (9-20); Calcium 8.4 mg/dL (8.4-10.2); Carbon Dioxide 24 mmol/L (22-30); Chloride 112 mmol/L (98-107); Glucose 59 mg/dL (74-99); Phosphorus 2.7 mg/dL (2.5-4.5); Potassium 3.7 mmol/L (3.5-5.1); Sodium 140 mmol/L (137-145)
[2018-10-04 08:17] LABS: Basophils # (A) 0.1 k/uL (0-0.2); Basophils % (A) 1 %; Eosinophils # (A) 0.1 k/uL (0-0.7); Eosinophils % (A) 1 %; HCT 37.9 % (39.0-53.0); HGB 13.1 gm/dL (13.0-17.5); Lymphocytes # (A) 1.2 k/uL (1.0-4.8); Lymphocytes % (A) 18 %; MCH 28.5 pg (25.0-35.0); MCHC 34.7 g/dL (31.0-37.0); Mean Platelet Volume 7.1; Monocytes # (A) 0.4 k/uL (0-1.0); Monocytes % (A) 7 %; Neutrophils # (A) 4.9 k/uL (1.3-7.7); Neutrophils % (A) 73 %; Platelet Count 217 k/uL (150-450); RBC 4.61 m/uL (4.30-5.90); RDW 12.5 % (11.5-15.5); WBC 6.7 k/uL (3.8-10.6)
[2018-10-04 08:20] LABS: MCV 82.2 fL (80.0-100.0)
[2018-10-04] MEDS: TASIMELTEON 20 MG PO SCH (08:34)
[2018-10-04] MEDS: LISINOPRIL 20 MG TAB PO SCH (08:35)
[2018-10-04] MEDS: INSULIN DETEMIR (LEVEMIR) 100 UNIT/ML SYR SQ SCH ×2 (08:36→21:47)
[2018-10-04] MEDS ORDERED: amLODIPine 5 MG TAB PO SCH (09:00)
[2018-10-04 11:46] LABS: Glucose,Whole Blood 154 mg/dL (75-99)
[2018-10-04] MEDS ORDERED: cloNIDine HCL 0.1 MG TAB PO PRN (13:07)
[2018-10-04] MEDS: METOPROLOL TARTRATE 25 MG TAB PO SCH ×2 (14:33→21:46)
--- NOTE | 2018-10-04 14:57 | P.PN ---
Subjective Progress Note Date: 10/04/18 On 10/04/2018 the patient was transferred out of the intensive care unit. Recovered from DKA. No complaints. Sugars are being monitored. His complete resolution of the diabetic ketoacidosis. No altered mentation. Objective - Vital Signs Vital signs: Vital Signs Temp 98.4 F 10/04/18 07:00 Pulse 105 H 10/04/18 07:00 Resp 16 10/04/18 08:15 BP 202/114 10/04/18 13:10 Pulse Ox 98 10/04/18 07:00 Intake & Output 10/03/18 10/04/18 10/04/18 18:59 06:59 18:59 Intake Total 1686.151 Output Total 1000 Balance 686.151 Weight 82.6 kg Intake: IV 1050 D5-0.45% NaCl with KCl 1050 20Meq/l 1,000 ml @ 150 mls/hr IV .Q6H40M [facility] Rx# :[id number] Intake, IV Titration 16.151 Amount Insulin Regular 100 unit 16.151 In Sodium Chloride 0.9% 100 ml @ 0.1 UNITS/KG/HR 8.246 mls/hr IV .[id number] [facility] Rx#:[id number] Oral 620 Output: Urine 1000 Other: Voiding Method Indwelling Catheter # Voids 0 - Exam Gen. appearance, comfortable, mental status improved considerably since yesterday. Following commands and asking questions this morning. On room air. Head exam was generally normal. There was no scleral icterus or corneal arcus. Mucous membranes were moist. The patient has cataracts in both eyes most on the left Neck was supple and without jugular venous distension, thyromegaly, or carotid bruits. Carotids were easily palpable bilaterally. There was no adenopathy. Cardiac exam revealed the PMI to be normally situated and sized. The rhythm was regular and no extrasystoles were noted during several minutes of auscultation. The first and second heart sounds were normal and physiologic splitting of the second heart sound was noted. There is a systolic ejection murmur grade 4/6 heard throughout the precordium. Lungs were clear to auscultation and percussion, and with normal diaphragmatic excursion. No wheezes or rales were noted. Abdominal exam revealed normal bowel sounds. The abdomen was soft, non-tender, and without masses, organomegaly, or appreciable enlargement of the abdominal aorta. Examination of the extremities revealed easily palpable radial, femoral and pedal pulses. There was no cyanosis, clubbing or edema. Examination of the skin revealed no evidence of significant rashes, suspicious appearing nevi or other concerning lesions. Neurologically encephalopathic secondary to DKA and this is gradually improving. Neurologic exam is nonfocal. He is moving all 4 extremities without any limitation. - Labs CBC & Chem 7: 10/04/18 06:50 10/04/18 06:50 Labs: Abnormal Lab Results - Last 24 Hours (Table) 10/03/18 10/03/18 10/03/18 Range/Units 17:04 20:43 20:46 Hct (39.0-53.0) % Chloride 114 H (98-107) mmol/L Carbon Dioxide 20 L (22-30) mmol/L BUN 22 H (9-20) mg/dL Glucose 131 H (74-99) mg/dL POC Glucose (mg/dL) 171 H 177 H (75-99) mg/dL Calcium 7.9 L (8.4-10.2) mg/dL Phosphorus 2.4 L (2.5-4.5) mg/dL 10/04/18 10/04/18 10/04/18 Range/Units 06:50 06:50 07:05 Hct 37.9 L (39.0-53.0) % Chloride 112 H (98-107) mmol/L Carbon Dioxide (22-30) mmol/L BUN (9-20) mg/dL Glucose 59 L (74-99) mg/dL POC Glucose (mg/dL) 71 L (75-99) mg/dL Calcium (8.4-10.2) mg/dL Phosphorus (2.5-4.5) mg/dL 10/04/18 Range/Units 11:34 Hct (39.0-53.0) % Chloride (98-107) mmol/L Carbon Dioxide (22-30) mmol/L BUN (9-20) mg/dL Glucose (74-99) mg/dL POC Glucose (mg/dL) 154 H (75-99) mg/dL Calcium (8.4-10.2) mg/dL Phosphorus (2.5-4.5) mg/dL Microbiology - Last 24 Hours (Table) 10/02/18 02:06 Blood Culture - Preliminary Blood No Growth after 24 hours Assessment and Plan Plan: 1 acute DKA with anion gap metabolic acidosis, recovered 2 type 1 diabetes mellitus with poor blood sugar control 3 legal blindness 4 hyperlipidemia 5 leukocytosis secondary to DKA 6 acute kidney injury secondary to DKA 7 lactic acidosis, mild, improving 8 cardiac murmur Plan The patient has been switched to long-acting insulin. Diabetic education. Pulmonary and critical care services we'll sign off.
--- NOTE | 2018-10-04 15:00 | P.PN ---
Subjective Progress Note Date: 10/03/18 Principal diagnosis: Diabetic ketoacidosis Mr. Ramirez is a 53-year-old male with a type I diabetes mellitus who is on insulin coming to the hospital for nausea vomiting. Patient was in DKA admitted to the ICU. He was started on insulin drip and IV fluids. His creatinine has been trending down and blood sugars below 250 this morning. His insulin drip has been discontinued and he is being transferred to the general medical floors. Today he is sitting up in a chair by the bedside appears to be no acute distress. Patient denies having any nausea vomiting. She denies having any chest pain or palpitations. No difficulty in breathing or cough. No dysuria or hematuria. Patient has been compliant with his insulin doses at home but probably because of malfunctioning glucometer he was not able to get appropriate blood sugar readings and so underdosing himself with insulin which caused him to have DKA. Patient's labs and medications have been reviewed. Active Medications Acetaminophen (Tylenol Tab) 500 mg PO Q6HR PRN PRN Reason: Fever and/ or Pain Last Admin: 10/02/18 22:03 Dose: 500 mg Documented by: Amitriptyline HCl (Elavil) 50 mg PO [facility] Last Admin: 10/02/18 22:03 Dose: 50 mg Documented by: Atorvastatin Calcium (Lipitor) 40 mg PO [facility] Last Admin: 10/02/18 18:33 Dose: 40 mg Documented by: Enoxaparin Sodium (Lovenox) 40 mg SQ Q24H [facility] Last Admin: 10/02/18 23:29 Dose: 40 mg Documented by: Potassium Chloride/Dextrose/Sod Cl (D5%-1/2ns-Kcl 20 Meq/L Iv Solution) 1,000 mls @ 150 mls/hr IV .Q6H40M [facility] Last Admin: 10/03/18 07:59 Dose: 150 mls/hr Documented by: Potassium Chloride/Dextrose/Sod Cl (D5%-1/2ns-Kcl 20 Meq/L Iv Solution) 1,000 mls @ 50 mls/hr IV .Q20H [facility] Last Admin: 10/03/18 11:35 Dose: 50 mls/hr Documented by: Insulin Aspart (Novolog) 0 unit SQ [facility]; Protocol Last Admin: 10/03/18 12:22 Dose: 1 unit Documented by: Insulin Detemir (Levemir) 40 unit SQ BID [facility] Last Admin: 10/03/18 11:28 Dose: 40 unit Documented by: Lisinopril (Zestril) 40 mg PO DAILY [facility] Last Admin: 10/03/18 07:59 Dose: 40 mg Documented by: Miscellaneous Information (Magnesium Per Protocol) 1 each MISCELLANE DAILY PRN; Protocol PRN Reason: Per Protocol Miscellaneous Information (Potassium Per Protocol) 1 each MISCELLANE DAILY PRN PRN Reason: Per Protocol Miscellaneous Information (Phosphorus Per Protocol) 1 each MISCELLANE DAILY PRN; Protocol PRN Reason: Per Protocol Tasimelteon [Hetlioz (] 20 Mg) 20 mg PO DAILY [facility] Last Admin: 10/03/18 09:51 Dose: Not Given Documented by: Ondansetron HCl (Zofran) 4 mg IVP Q6HR PRN PRN Reason: Nausea And Vomiting Objective - Vital Signs Vital signs: Vital Signs Temp 98.3 F 10/03/18 13:42 Pulse 97 10/03/18 14:14 Resp 17 10/03/18 14:14 BP 178/78 10/03/18 13:42 Pulse Ox 96 10/03/18 13:42 Intake & Output 10/02/18 10/03/18 10/03/18 18:59 06:59 18:59 Intake Total 3116.111 1800 1566.151 Output Total 3653 777 1035 Balance 1990.111 975 566.151 Weight 81.647 kg 82.9 kg Intake: IV 2050 1800 1050 D5-0.45% NaCl with KCl 1050 1800 1050 20Meq/l 1,000 ml @ 150 mls/hr IV .Q6H40M [facility] Rx# :[id number] Sodium Chloride 0.9% 1, 1000 000 ml @ 200 mls/hr IV . Q5H [facility] Rx#:[id number] Intake, IV Titration 66.111 16.151 Amount Insulin Regular 100 unit 66.111 16.151 In Sodium Chloride 0.9% 100 ml @ 0.1 UNITS/KG/HR 8.246 mls/hr IV .[id number] [facility] Rx#:[id number] Oral 1000 500 Output: Urine 2490 192 5505 Other: Voiding Method Indwelling Catheter Indwelling Catheter Indwelling Catheter - Exam GEN. APPEARANCE: alert, in no apparent distress HEAD EXAM: atraumatic, normocephalic, normal inspection EYE EXAM: Right prosthetic eye. Legally blind ENT EXAM: normal exam, mucous membranes moist NECK EXAM: normal inspection. Absent: tenderness, meningismus, full ROM, lymphadenopathy RESPIRATORY EXAM: normal lung sounds bilaterally. Absent: respiratory distress, wheezes, rales, rhonchi, stridor CARDIOVASCULAR EXAM: regular rate, normal rhythm, normal heart sounds. Absent: systolic murmur, diastolic murmur, rubs, gallop, clicks GI/ABDOMINAL EXAM: soft, normal bowel sounds. Absent: distended, tenderness, guarding, rebound, rigid EXTREMITIES EXAM: normal inspection, full ROM, normal capillary refill. Absent: tenderness, pedal edema, joint swelling, calf tenderness NEUROLOGICAL EXAM: alert, oriented X3, CN II-XII intact, motor sensory deficit PSYCHIATRIC EXAM: normal affect, normal mood SKIN EXAM: warm, dry, intact, normal color. Absent: rash - Labs CBC & Chem 7: 10/03/18 05:04 10/03/18 08:58 Labs: Abnormal Lab Results - Last 24 Hours (Table) 10/02/18 10/02/18 10/02/18 Range/Units 15:59 16:01 17:01 WBC (3.8-10.6) k/uL RBC (4.30-5.90) m/uL Hgb (13.0-17.5) gm/dL Hct (39.0-53.0) % Sodium (137-145) mmol/L Chloride 114 H (98-107) mmol/L Carbon Dioxide 15 L (22-30) mmol/L BUN 42 H (9-20) mg/dL Creatinine 1.53 H (0.66-1.25) mg/dL Glucose 126 H (74-99) mg/dL POC Glucose (mg/dL) 124 H 122 H (75-99) mg/dL Calcium 7.9 L (8.4-10.2) mg/dL Phosphorus (2.5-4.5) mg/dL 10/02/18 10/02/18 10/02/18 Range/Units 18:00 18:57 19:59 WBC (3.8-10.6) k/uL RBC (4.30-5.90) m/uL Hgb (13.0-17.5) gm/dL Hct (39.0-53.0) % Sodium (137-145) mmol/L Chloride (98-107) mmol/L Carbon Dioxide (22-30) mmol/L BUN (9-20) mg/dL Creatinine (0.66-1.25) mg/dL Glucose (74-99) mg/dL POC Glucose (mg/dL) 120 H 145 H 139 H (75-99) mg/dL Calcium (8.4-10.2) mg/dL Phosphorus (2.5-4.5) mg/dL 10/02/18 10/02/18 10/02/18 Range/Units 20:33 21:48 23:32 WBC (3.8-10.6) k/uL RBC (4.30-5.90) m/uL Hgb (13.0-17.5) gm/dL Hct (39.0-53.0) % Sodium 136 L (137-145) mmol/L Chloride 114 H (98-107) mmol/L Carbon Dioxide 14 L (22-30) mmol/L BUN 39 H (9-20) mg/dL Creatinine 1.28 H (0.66-1.25) mg/dL Glucose 137 H (74-99) mg/dL POC Glucose (mg/dL) 146 H 159 H (75-99) mg/dL Calcium 7.7 L (8.4-10.2) mg/dL Phosphorus (2.5-4.5) mg/dL 10/03/18 10/03/18 10/03/18 Range/Units 00:13 00:42 01:47 WBC (3.8-10.6) k/uL RBC (4.30-5.90) m/uL Hgb (13.0-17.5) gm/dL Hct (39.0-53.0) % Sodium 136 L (137-145) mmol/L Chloride 113 H (98-107) mmol/L Carbon Dioxide 15 L (22-30) mmol/L BUN 35 H (9-20) mg/dL Creatinine 1.27 H (0.66-1.25) mg/dL Glucose 168 H (74-99) mg/dL POC Glucose (mg/dL) 168 H 176 H (75-99) mg/dL Calcium 7.7 L (8.4-10.2) mg/dL Phosphorus 2.1 L (2.5-4.5) mg/dL 10/03/18 10/03/18 10/03/18 Range/Units 03:03 04:39 05:04 WBC 11.3 H (3.8-10.6) k/uL RBC 4.21 L (4.30-5.90) m/uL Hgb 12.0 L (13.0-17.5) gm/dL Hct 36.9 L (39.0-53.0) % Sodium (137-145) mmol/L Chloride (98-107) mmol/L Carbon Dioxide (22-30) mmol/L BUN (9-20) mg/dL Creatinine (0.66-1.25) mg/dL Glucose (74-99) mg/dL POC Glucose (mg/dL) 191 H 211 H (75-99) mg/dL Calcium (8.4-10.2) mg/dL Phosphorus (2.5-4.5) mg/dL 10/03/18 10/03/18 10/03/18 Range/Units 05:04 06:10 07:11 WBC (3.8-10.6) k/uL RBC (4.30-5.90) m/uL Hgb (13.0-17.5) gm/dL Hct (39.0-53.0) % Sodium (137-145) mmol/L Chloride 114 H (98-107) mmol/L Carbon Dioxide 16 L (22-30) mmol/L BUN 31 H (9-20) mg/dL Creatinine (0.66-1.25) mg/dL Glucose 210 H (74-99) mg/dL POC Glucose (mg/dL) 214 H 264 H (75-99) mg/dL Calcium 7.9 L (8.4-10.2) mg/dL Phosphorus (2.5-4.5) mg/dL 10/03/18 10/03/18 10/03/18 Range/Units 07:58 08:55 08:58 WBC (3.8-10.6) k/uL RBC (4.30-5.90) m/uL Hgb (13.0-17.5) gm/dL Hct (39.0-53.0) % Sodium (137-145) mmol/L Chloride 115 H (98-107) mmol/L Carbon Dioxide 18 L (22-30) mmol/L BUN 28 H (9-20) mg/dL Creatinine (0.66-1.25) mg/dL Glucose 189 H (74-99) mg/dL POC Glucose (mg/dL) 200 H 186 H (75-99) mg/dL Calcium 7.9 L (8.4-10.2) mg/dL Phosphorus 1.8 L (2.5-4.5) mg/dL 10/03/18 10/03/18 10/03/18 Range/Units 10:06 11:29 12:19 WBC (3.8-10.6) k/uL RBC (4.30-5.90) m/uL Hgb (13.0-17.5) gm/dL Hct (39.0-53.0) % Sodium (137-145) mmol/L Chloride (98-107) mmol/L Carbon Dioxide (22-30) mmol/L BUN (9-20) mg/dL Creatinine (0.66-1.25) mg/dL Glucose (74-99) mg/dL POC Glucose (mg/dL) 181 H 155 H 136 H (75-99) mg/dL Calcium (8.4-10.2) mg/dL Phosphorus (2.5-4.5) mg/dL Microbiology - Last 24 Hours (Table) 10/02/18 03:10 Urine Culture - Final Urine,Catheterized Assessment and Plan Assessment: ASSESSMENT Diabetic ketoacidosis Type 1 diabetes mellitus insulin-dependent 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 His blood sugars below 250 this morning,so has been off of insulin drip and being transferred to the general medical floors. Patient is to resume back on his home dose of insulin. Continue DVT prophylaxis. Continue with her current medication regimen. Further recommendations depending on the progress of the patient.
--- NOTE | 2018-10-04 15:06 | P.PN ---
Subjective Progress Note Date: 10/04/18 Principal diagnosis: Diabetic ketoacidosis Covering for Dr. Walters over the weekend Mr. Fernandez is a 53-year-old male with a type I diabetes mellitus who is on insulin coming to the hospital for nausea vomiting. Patient was in DKA admitted to the ICU. He was started on insulin drip and IV fluids. His creatinine has been trending down and blood sugars below 250 yesterday morning. His insulin drip has been discontinued and he was transferred to the general medical floors y esterday. Today the patient is lying in the bed appears to be in no acute distress. Patient's blood pressure has been running high since this morning. Patient has been restarted on his home blood pressure medication. Currently his pressure is in 200-114. Patient denies having any chest pain or palpitations. Denies having any headaches. He complains of mild dizziness. Patient denies having any weakness of his extremities. No slurring of his speech. On review of other systems Constitutional-no fevers chills or rigors Respiratory-No cough or difficulty in breathing GI-no abdominal pain nausea vomiting or diarrhea no dysuria or hematuria Active Medications Acetaminophen (Tylenol Tab) 500 mg PO Q6HR PRN PRN Reason: Fever and/ or Pain Last Admin: 10/02/18 22:03 Dose: 500 mg Documented by: Amitriptyline HCl (Elavil) 50 mg PO [facility] Last Admin: 10/03/18 21:52 Dose: 50 mg Documented by: Amlodipine Besylate (Norvasc) 10 mg PO DAILY [facility] Atorvastatin Calcium (Lipitor) 40 mg PO [facility] Last Admin: 10/03/18 21:16 Dose: 40 mg Documented by: Enoxaparin Sodium (Lovenox) 40 mg SQ Q24H [facility] Last Admin: 10/03/18 21:16 Dose: 40 mg Documented by: Potassium Chloride/Dextrose/Sod Cl (D5%-1/2ns-Kcl 20 Meq/L [facility] Solution) 1,000 mls @ 50 mls/hr IV .Q20H [facility] Last Admin: 10/04/18 07:34 Dose: Not Given Documented by: Insulin Aspart (Novolog) 0 unit SQ [facility]; Protocol Last Admin: 10/04/18 11:56 Dose: 1 unit Documented by: Insulin Detemir (Levemir) 40 unit SQ BID [facility] Last Admin: 10/04/18 08:36 Dose: 40 unit Documented by: Lisinopril (Zestril) 40 mg PO DAILY [facility] Last Admin: 10/04/18 08:35 Dose: 40 mg Documented by: Metoprolol Tartrate (Lopressor) 25 mg PO BID [facility] Last Admin: 10/04/18 14:33 Dose: 25 mg Documented by: Miscellaneous Information (Magnesium Per Protocol) 1 each MISCELLANE DAILY PRN; Protocol PRN Reason: Per Protocol Miscellaneous Information (Potassium Per Protocol) 1 each MISCELLANE DAILY PRN PRN Reason: Per Protocol Miscellaneous Information (Phosphorus Per Protocol) 1 each MISCELLANE DAILY P RN; Protocol PRN Reason: Per Protocol Tasimelteon [Hetlioz (] 20 Mg) 20 mg PO DAILY [facility] Last Admin: 10/04/18 08:34 Dose: Not Given Documented by: Ondansetron HCl (Zofran) 4 mg IVP Q6HR PRN PRN Reason: Nausea And Vomiting Pantoprazole Sodium (Protonix) 40 mg PO AC-BID [facility] Objective - Vital Signs Vital signs: Vital Signs Temp 98.4 F 10/04/18 07:00 Pulse 105 H 10/04/18 07:00 Resp 16 10/04/18 08:15 BP 202/114 10/04/18 13:10 Pulse Ox 98 10/04/18 07:00 Intake & Output 10/03/18 10/04/18 10/04/18 18:59 06:59 18:59 Intake Total 1686.151 Output Total 1000 Balance 686.151 Weight 82.6 kg Intake: IV 1050 D5-0.45% NaCl with KCl 1050 20Meq/l 1,000 ml @ 150 mls/hr IV .Q6H40M [facility] Rx# :[id number] Intake, IV Titration 16.151 Amount Insulin Regular 100 unit 16.151 In Sodium Chloride 0.9% 100 ml @ 0.1 UNITS/KG/HR 8.246 mls/hr IV .[id number] [facility] Rx#:[id number] Oral 620 Output: Urine 1000 Other: Voiding Method Indwelling Catheter # Voids 0 - Exam GEN. APPEARANCE: alert, in no apparent distress HEAD EXAM: atraumatic, normocephalic, normal inspection EYE EXAM: Right prosthetic eye. Legally blind ENT EXAM: normal exam, mucous membranes moist NECK EXAM: normal inspection. Absent: tenderness, meningismus, full ROM, lym phadenopathy RESPIRATORY EXAM: normal lung sounds bilaterally. Absent: respiratory distress, wheezes, rales, rhonchi, stridor CARDIOVASCULAR EXAM: regular rate, normal rhythm, normal heart sounds. Absent: systolic murmur, diastolic murmur, rubs, gallop, clicks GI/ABDOMINAL EXAM: soft, normal bowel sounds. Absent: distended, tenderness, guarding, rebound, rigid EXTREMITIES EXAM: normal inspection, full ROM, normal capillary refill. Absent: tenderness, pedal edema, joint swelling, calf tenderness NEUROLOGICAL EXAM: alert, oriented X3, no focal neurological deficits PSYCHIATRIC EXAM: normal affect, normal mood SKIN EXAM: warm, dry, intact, normal color. Absent: rash - Labs CBC & Chem 7: 10/04/18 06:50 10/04/18 06:50 Labs: Abnormal Lab Results - Last 24 Hours (Table) 10/03/18 10/03/18 10/03/18 Range/Units 17:04 20:43 20:46 Hct (39.0-53.0) % Chloride 114 H (98-107) mmol/L Carbon Dioxide 20 L (22-30) mmol/L BUN 22 H (9-20) mg/dL Glucose 131 H (74-99) mg/dL POC Glucose (mg/dL) 171 H 177 H (75-99) mg/dL Calcium 7.9 L (8.4-10.2) mg/dL Phosphorus 2.4 L (2.5-4.5) mg/dL 10/04/18 10/04/18 10/04/18 Range/Units 06:50 06:50 07:05 Hct 37.9 L (39.0-53.0) % Chloride 112 H (98-107) mmol/L Carbon Dioxide (22-30) mmol/L BUN (9-20) mg/dL Glucose 59 L (74-99) mg/dL POC Glucose (mg/dL) 71 L (75-99) mg/dL Calcium (8.4-10.2) mg/dL Phosphorus (2.5-4.5) mg/dL 10/04/18 Range/Units 11:34 Hct (39.0-53.0) % Chloride (98-107) mmol/L Carbon Dioxide (22-30) mmol/L BUN (9-20) mg/dL Glucose (74-99) mg/dL POC Glucose (mg/dL) 154 H (75-99) mg/dL Calcium (8.4-10.2) mg/dL Phosphorus (2.5-4.5) mg/dL Microbiology - Last 24 Hours (Table) 10/02/18 02:06 Blood Culture - Preliminary Blood No Growth after 24 hours Assessment and Plan Assessment: ASSESSMENT Diabetic ketoacidosis Poorly controlled hypertension Type 1 diabetes mellitus insulin-dependent 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 He is currently on his home doses of his insulin. But patient's blood pressure has been high 200s by 110. No signs of hypertensive urgency or emergency. Patient received 0.1 of clonidine and his repeat blood pressure has been trending down. Patient was also having tachycardia so he was started on metoprolol 25 mg . We'll continue with the rest of his current medication regimen. Dr. Walters to follow the patient from tomorrow.
[2018-10-04 17:00] LABS: Glucose,Whole Blood 162 mg/dL (75-99)
[2018-10-04] MEDS: PANTOPRAZOLE 40 MG TABLET PO SCH (17:05)
[2018-10-04 20:52] LABS: Glucose,Whole Blood 180 mg/dL (75-99)
[2018-10-04] MEDS: ENOXAPARIN 40 MG/0.4 ML SYRINGE SQ SCH (21:43)
[2018-10-04] MEDS: ATORVASTATIN 40 MG TAB PO SCH (21:46)
[2018-10-04] MEDS: AMITRIPTYLINE HCL 50 MG TAB PO SCH (21:46)
[2018-10-05 07:06] LABS: Glucose,Whole Blood 53 mg/dL (75-99)
[2018-10-05 07:19] LABS: Glucose,Whole Blood 54 mg/dL (75-99)
[2018-10-05 07:28] LABS: HCT 37.1 % (39.0-53.0); HGB 12.7 gm/dL (13.0-17.5); MCH 28.3 pg (25.0-35.0); MCHC 34.4 g/dL (31.0-37.0); MCV 82.4 fL (80.0-100.0); Mean Platelet Volume 7.2; Platelet Count 193 k/uL (150-450); RDW 12.4 % (11.5-15.5); WBC 2.6 k/uL (3.8-10.6)
[2018-10-05 07:37] LABS: Glucose,Whole Blood 82 mg/dL (75-99)
[2018-10-05 07:45] LABS: ALT 593 U/L (21-72); Alkaline Phosphatase 214 U/L (38-126); Anion Gap 3 mmol/L; Blood Urea Nitrogen 20 mg/dL (9-20); Calcium 8.6 mg/dL (8.4-10.2); Carbon Dioxide 27 mmol/L (22-30); Chloride 110 mmol/L (98-107); Glucose 57 mg/dL (74-99); Magnesium 1.7 mg/dL (1.6-2.3); Phosphorus 2.9 mg/dL (2.5-4.5); Potassium 3.6 mmol/L (3.5-5.1); Sodium 140 mmol/L (137-145); Total Bilirubin 1.6 mg/dL (0.2-1.3); Total Protein 5.5 g/dL (6.3-8.2)
[2018-10-05 07:54] LABS: AST 1483 U/L (17-59)
[2018-10-05] MEDS: INSULIN ASPART (NovoLOG) 100 UNIT/ML VIAL SQ SCH ×5 (07:54→20:46)
[2018-10-05 09:03] LABS: Glucose,Whole Blood 168 mg/dL (75-99)
[2018-10-05] MEDS: INSULIN DETEMIR (LEVEMIR) 100 UNIT/ML SYR SQ SCH ×2 (09:08→20:46)
[2018-10-05] MEDS: LISINOPRIL 20 MG TAB PO SCH ×2 (09:09→20:47)
[2018-10-05] MEDS: METOPROLOL TARTRATE 25 MG TAB PO SCH ×2 (09:09→20:47)
[2018-10-05] MEDS: amLODIPine 10 MG TAB PO SCH (09:09)
[2018-10-05] MEDS: PANTOPRAZOLE 40 MG TABLET PO SCH ×2 (09:09→18:06)
[2018-10-05] MEDS: TASIMELTEON 20 MG PO SCH (10:36)
[2018-10-05 11:44] LABS: Glucose,Whole Blood 248 mg/dL (75-99)
[2018-10-05] MEDS: D5-0.45% NACL WITH KCL 20MEQ/L 1,000 ML IV SCH (12:22)
[2018-10-05 13:08] VITALS: BMI 29.4
[2018-10-05 17:05] LABS: Glucose,Whole Blood 107 mg/dL (75-99)
[2018-10-05 20:05] LABS: Glucose,Whole Blood 173 mg/dL (75-99)
[2018-10-05 20:25] LABS: Hemoglobin A1C 11.6 % (4.0-6.0)
[2018-10-05] MEDS: AMITRIPTYLINE HCL 50 MG TAB PO SCH (20:46)
[2018-10-05] MEDS: ENOXAPARIN 40 MG/0.4 ML SYRINGE SQ SCH (20:47)
--- NOTE | 2018-10-05 23:41 | PN ---
PROGRESS NOTE DATE OF SERVICE: 10/05/2018 PRESENTING COMPLAINT: Abnormal liver function. INTERVAL HISTORY: This patient was initially admitted with diabetic ketoacidosis and is legally blind. He has been tolerating his diet. Today LFTs were noted to be running really high and blood pressure was also running high. No chest pain. No dizziness. No lightheadedness. No abdominal pain. No nausea or vomiting. Patient's girlfriend is present. REVIEW OF SYSTEMS: Done for constitutional, cardiovascular, GI, pulmonary; relevant findings as above. CURRENT MEDICATIONS: Reviewed. They include Levemir 40 units subcutaneously q.12. PHYSICAL EXAMINATION: Temperature 98.3, pulse 92, respiration 16, blood pressure 162/78. GENERAL APPEARANCE: Sitting at edge of the bed, comfortable. EYES: Conjunctivae dirty. NECK: JVD not raised. Mass not palpable. RESPIRATORY: Effort normal. LUNGS: Fair air entry. CARDIOVASCULAR: First and second sounds normal. No edema. ABDOMEN: Soft, non-tender. Liver and spleen not palpable. LYMPHATIC: No lymph node palpable in neck or axillae. PSYCHIATRY: Alert and oriented x3. Mood and affect normal. INVESTIGATIONS: White count 2.6, hemoglobin 12.7, platelets 193. Potassium 3.6. BUN and creatinine are normal Accu-Cheks 53, 54. AST 1483, ALT 593. These numbers were 18 and 38 on 10/02/2018. ASSESSMENT: 1. Acute diabetic ketoacidosis, now resolved. 2. Diabetes mellitus, type 1, with chronic insulin dependence, uncontrolled with hypoglycemia. 3. Chronic diabetic retinopathy with poor eyesight. 4. Chronic kidney disease, probably from diabetic nephropathy. 5. Acute renal failure, prerenal, from diabetic ketoacidosis, now resolved. 6. Hyperkalemia due to renal failure, improved. 7. Acute hepatitis; could be ischemic. Patient does take chronically Lipitor. 8. Hypertension with urgency. PLAN: Will get a hepatic ultrasound, get a GI consult. Patient has no symptoms otherwise. For better blood pressure control, we will increase patient's Zestril to 40 mg b.i.d. The patient is also hypoglycemic. Will cut back on Levemir to 32 units subcutaneously q.12 and add NovoLog 8 units with each meal. Care was discussed with the patient and his girlfriend at length. The patient is hoping to go home. I did tell him that this is important that we address these current issues. MMSEEMA / IJN: [id number] /
[2018-10-06 03:08] LABS: Glucose,Whole Blood 69 mg/dL (75-99)
[2018-10-06] MEDS ORDERED: DEXTROSE 50%-WATER 50 ML SYRINGE IVP STA (03:18)
[2018-10-06 03:24] LABS: Glucose,Whole Blood 55 mg/dL (75-99)
[2018-10-06 04:00] LABS: Glucose,Whole Blood 113 mg/dL (75-99)
[2018-10-06] MEDS ORDERED: DEXTROSE 5% IN WATER 1,000 ML IV ONE (04:06)
[2018-10-06 05:10] LABS: ALT 619 U/L (21-72); Albumin 2.6 g/dL (3.5-5.0); Alkaline Phosphatase 251 U/L (38-126); Anion Gap 3 mmol/L; Blood Urea Nitrogen 19 mg/dL (9-20); Calcium 8.6 mg/dL (8.4-10.2); Carbon Dioxide 27 mmol/L (22-30); Chloride 108 mmol/L (98-107); Glucose 107 mg/dL (74-99); Potassium 3.7 mmol/L (3.5-5.1); Sodium 138 mmol/L (137-145); Total Bilirubin 1.1 mg/dL (0.2-1.3); Total Protein 4.9 g/dL (6.3-8.2)
[2018-10-06 05:12] LABS: Glucose,Whole Blood 89 mg/dL (75-99)
[2018-10-06 05:22] LABS: AST 1116 U/L (17-59)
[2018-10-06 07:06] LABS: Glucose,Whole Blood 72 mg/dL (75-99)
--- NOTE | 2018-10-06 08:43 | US ---
EXAMINATION TYPE: US abdomen limited DATE OF EXAM: 10/06/2018 COMPARISON: NONE CLINICAL HISTORY: acute hepatitis. EXAM MEASUREMENTS: Liver Length: 17.7 cm Gallbladder Wall: 0.3 cm CBD: 0.6 cm Right Kidney: 10.9 x 5.6 x 5.2 cm Pancreas: wnl as seen, partially obscured by bowel gas Liver: Coarsened hepatic echotexture, upper limits of normal in size Gallbladder: wnl Evidence for sonographic Sullivan's sign: no CBD: wnl Right Kidney: wnl IMPRESSION: Coarsened hepatic echotexture relates to the patient's known hepatocellular disease. Alth ough this limits evaluation for hepatic masses no focal mass is seen on today's examination.
[2018-10-06] MEDS: INSULIN DETEMIR (LEVEMIR) 100 UNIT/ML SYR SQ SCH ×2 (09:00→20:40)
[2018-10-06 09:35] LABS: Glucose,Whole Blood 74 mg/dL (75-99)
[2018-10-06] MEDS: INSULIN ASPART (NovoLOG) 100 UNIT/ML VIAL SQ SCH ×7 (10:26→20:39)
[2018-10-06 11:54] LABS: Glucose,Whole Blood 70 mg/dL (75-99)
[2018-10-06] MEDS: amLODIPine 10 MG TAB PO SCH (12:04)
[2018-10-06] MEDS: PANTOPRAZOLE 40 MG TABLET PO SCH ×2 (12:04→17:24)
[2018-10-06] MEDS: LISINOPRIL 20 MG TAB PO SCH ×2 (12:05→20:40)
[2018-10-06] MEDS: METOPROLOL TARTRATE 25 MG TAB PO SCH ×2 (12:05→20:40)
[2018-10-06] MEDS: TASIMELTEON 20 MG PO SCH (12:23)
[2018-10-06 13:01] LABS: Glucose,Whole Blood 82 mg/dL (75-99)
--- NOTE | 2018-10-06 13:16 | P.CONS ---
History of Present Illness - Reason for Consult Consult date: 10/06/18 Elevated liver enzymes Requesting physician: Stas Walters - Chief Complaint Nausea vomiting elevated glucose - History of Present Illness 53-year-old gentleman type I diabetic legal blindness admitted with hyperglycemia nausea vomiting diabetic ketoacidosis. Consultation requested for elevated liver enzymes. Patient states over the last month or so he said difficulty controlling his blood sugars the setting up and down. Hemoglobin A1c 11.6. Denies abdominal pain and weight loss jaundice changes in the clever stool or urine however he is not able to see this from his blindness this was per his girlfriend's history. No history of known liver disorders. No history of alcoholism. No recent medication changes. Blood pressures have been running on the high side systolically greater than 160. No documented episodes of hypotension. Afebrile. Ultrasound abdomen coarsened hepatic echotexture. CBD 0.6 m. Gallbladder wall 0.37 minutes. Liver length of 17.7 cm. Admission 10/02/2018 total bilirubin 0.5. AST 18. ALT 38. BP 144. Lipase 164. Glucose 774. Potassium 6.7. Sodium 132. BUN 52. Creatinine 2.2. Total bilirubin increased to 1.6 yesterday presently 1.1. AST 1483. ALT 593. AP 144. Home medications include Lipitor Vasotec Actos insulin [place] and Hetlioz. Review of Systems Constitutional: Denies fever, chills, sweats, weight gain, or loss. HEENT: Negative for migraines, blurred vision or loss, earaches, drainage, tinnitus, oral mucosal lesions, dysphagia, or odynophagia. Cardiac: Negative for chest pain, arrhythmias, or palpitation. Respiratory: Negative for shortness of breath, hemoptysis, cough, or sputum production. Gastrointestinal: See HPI for pertinent findings. Genitourinary: Negative for hematuria, urgency, frequency, polyuria, dysuria, or penile discharge. Musculoskeletal: Negative for muscle aches, swelling, arthritis, and arthralgias. Neurologic: Negative for stroke or TIA. Endocrine: Negative for thyroid problems. Skin: Negative for rash or itching. 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 Sister(s) Family Medical History: Diabetes Mellitus Medications and Allergies Home Medications Medication Instructions Recorded Confirmed Type Amitriptyline HCl [Elavil] 50 mg PO HS 10/02/18 10/02/18 History Atorvastatin [Lipitor] 40 mg PO HS 10/02/18 10/02/18 History Enalapril [Vasotec] 20 mg PO DAILY 10/02/18 10/02/18 History Insulin Aspart [NovoLOG] See Protocol SQ TID-W/MEALS 10/02/18 10/02/18 History Insulin Detemir (Levemir) [Levemir] 48 unit SQ BID 10/02/18 10/02/18 History Pioglitazone HCl [Actos] 15 mg PO DAILY 10/02/18 10/02/18 History Tasimelteon [Hetlioz] 20 mg PO DAILY 10/02/18 10/02/18 History Allergies Allergy/AdvReac Type Severity Reaction Status Date / Time No Known Allergies Allergy Verified 10/02/18 09:32 Physical Exam Vitals: Vital Signs Temp Pulse Resp BP BP Pulse Ox 10/06/18 10:32 88 182/90 170/94 10/06/18 07:00 98.4 F 95 16 195/95 97 10/06/18 06:02 181/93 10/06/18 01:18 98.4 F 89 16 173/88 96 10/05/18 21:30 166/82 10/05/18 19:20 98.3 F 109 H 16 177/83 96 10/05/18 14:05 98.5 F 92 162/78 98 Intake and Output 10/05/18 10/06/18 10/06/18 22:59 06:59 14:59 Intake Total 150 Balance 150 Intake: Intake, IV Titration 150 Amount Dextrose 5% in Water 1, 150 000 ml @ 75 mls/hr IV . [id number] ONE Rx#:[id number] Other: # Voids 0 Weight 83.5 kg General appearance: The patient is alert, oriented, in no acute distress. HET: Head is normocephalic and atraumatic. Pupils are equal and reactive. Oropharynx is clear without lesions. Neck: Supple without lymphadenopathy. Trachea midline. Heart: S1 S2. Regular rate and rhythm. Lungs: No crackles or wheezes are heard. Abdomen: Soft, nontender, nondistended with bowel sounds. No peritoneal signs. No palpable organomegaly or masses. Extremities: Normal skin color and turgor. No cyanosis, rash, ulceration, clubbing, or edema. Radial and pedal pulses are 2/4 bilaterally. Neurological: No focal deficits. Strength and sensation are grossly intact. Results CBC & Chem 7: 10/07/18 07:02 10/07/18 07:02 Labs: Abnormal Lab Results - Last 24 Hours (Table) 10/05/18 10/05/18 10/05/18 Range/Units 07:09 16:53 19:53 Chloride (98-107) mmol/L Glucose (74-99) mg/dL POC Glucose (mg/dL) 107 H 173 H (75-99) mg/dL Hemoglobin A1c 11.6 H (4.0-6.0) % AST (17-59) U/L ALT (21-72) U/L Alkaline Phosphatase (38-126) U/L Total Protein (6.3-8.2) g/dL Albumin (3.5-5.0) g/dL 10/06/18 10/06/18 10/06/18 Range/Units 02:56 03:12 03:48 Chloride (98-107) mmol/L Glucose (74-99) mg/dL POC Glucose (mg/dL) 69 L 55 L 113 H (75-99) mg/dL Hemoglobin A1c (4.0-6.0) % AST (17-59) U/L ALT (21-72) U/L Alkaline Phosphatase (38-126) U/L Total Protein (6.3-8.2) g/dL Albumin (3.5-5.0) g/dL 10/06/18 10/06/18 10/06/18 Range/Units 04:32 06:36 09:24 Chloride 108 H (98-107) mmol/L Glucose 107 H (74-99) mg/dL POC Glucose (mg/dL) 72 L 74 L (75-99) mg/dL Hemoglobin A1c (4.0-6.0) % AST 1116 H (17-59) U/L ALT 619 H (21-72) U/L Alkaline Phosphatase 251 H (38-126) U/L Total Protein 4.9 L (6.3-8.2) g/dL Albumin 2.6 L (3.5-5.0) g/dL 10/06/18 Range/Units 11:42 Chloride (98-107) mmol/L Glucose (74-99) mg/dL POC Glucose (mg/dL) 70 L (75-99) mg/dL Hemoglobin A1c (4.0-6.0) % AST (17-59) U/L ALT (21-72) U/L Alkaline Phosphatase (38-126) U/L Total Protein (6.3-8.2) g/dL Albumin (3.5-5.0) g/dL Microbiology - Last 24 Hours (Table) 10/02/18 02:06 Blood Culture - Preliminary Blood No Growth after 72 hours US - abdomen: report reviewed (Reviewed by Dr. Rojas) Assessment and Plan (1) Elevated liver enzymes Narrative/Plan: 53-year-old gentleman presents with intractable nausea vomiting acute diabetic ketoacidosis with unremarkable admission liver enzymes with new development of acute transaminitis with normal bilirubin suspect acute hepatocellular injury possible from drug induced liver injury possible ischemic possible viral possible hepatic glycopathy Current Visit: Yes Status: Acute Code(s): R74.8 - ABNORMAL LEVELS OF OTHER SERUM ENZYMES SNOMED Code(s): 762620193 (2) DKA (diabetic ketoacidoses) Current Visit: Yes Status: Acute Code(s): E13.10 - OTH DIABETES MELLITUS WITH KETOACIDOSIS WITHOUT COMA SNOMED Code(s): 470009458 (3) Type 1 diabetes mellitus Current Visit: Yes Status: Acute Code(s): E10.9 - TYPE 1 DIABETES MELLITUS WITHOUT COMPLICATIONS SNOMED Code(s): 21859426 Plan: 1. Avoid hepatotoxic medications. Glycemic control. Hepatitis screen. EBV CMV profile. Daily monitoring CMP. Check PT/INR. Will follow closely with you. Thank you for this kind referral and the opportunity to participate in the care of your patient. This consultation was discussed with Dr. Rojas. The impression and plan of care have been directed as dictated.
[2018-10-06 16:53] LABS: Glucose,Whole Blood 324 mg/dL (75-99)
[2018-10-06 20:20] LABS: Glucose,Whole Blood 271 mg/dL (75-99)
[2018-10-06] MEDS: ENOXAPARIN 40 MG/0.4 ML SYRINGE SQ SCH (20:40)
[2018-10-06] MEDS: AMITRIPTYLINE HCL 50 MG TAB PO SCH (20:41)
[2018-10-06] MEDS ORDERED: METOPROLOL TARTRATE 25 MG TAB PO STA (23:17)
[2018-10-07 00:49] LABS: EBV-VCA (IgG) >8.0 AI
[2018-10-07 01:34] LABS: Hepatitis A Antibody IgM Non-Reactive (Non-Reactive); Hepatitis B Core IgM Non-Reactive (Non-Reactive)
[2018-10-07 03:11] LABS: Glucose,Whole Blood 55 mg/dL (75-99)
[2018-10-07 03:28] LABS: Glucose,Whole Blood 70 mg/dL (75-99)
--- NOTE | 2018-10-07 05:06 | PN ---
PROGRESS NOTE DATE OF SERVICE: 10/06/2018 PRESENTING COMPLAINT: Abnormal liver function. INTERVAL HISTORY: Patient was admitted with diabetic ketoacidosis and is legally blind. Tolerating a diet. The patient had an acute hepatitis. LFTs going up during the hospital stay. GI saw the patient. The patient's blood pressure also has been running high. Medications were adjusted yesterday. Lisinopril was increased. Blood sugars went down and D5W was added. No abdominal pain. No nausea, vomiting, tolerating his diet. REVIEW OF SYSTEMS: Done for constitutional, cardiovascular, GI, pulmonary; relevant findings as above. CURRENT MEDICATIONS: Current medications are reviewed that include Levemir 32 units subcu q.12, Norvasc 10 mg a day, Lopressor 25 mg b.i.d. PHYSICAL EXAMINATION: On examination, temperature 97.8, pulse 111, respirations 16, blood pressure 150/81, repeat in the evening was 184/84. GENERAL APPEARANCE: Sitting at the edge of bed, comfortable, eating his meal. EYES: Pupils equal. Conjunctiva rugged. NECK: JVD not raised. Mass not palpable. RESPIRATORY: Effort LUNGS: Fair entry. CARDIOVASCULAR: First and second sounds normal. No edema. ABDOMEN: Soft, nontender. Liver and spleen not palpable. PSYCHIATRY: Alert and oriented x3. Mood and affect normal. INVESTIGATIONS: Potassium 3.7, BUN 19, creatinine 0.95, AST 1116, ALT 619, alkaline phosphatase 251, total bilirubin 1.1. ASSESSMENT: 1. Acute diabetic ketoacidosis, resolved. 2. Diabetes mellitus type 1, chronically on insulin uncontrolled with hypoglycemia. 3. Chronic diabetic retinopathy with poor eyesight. 4. Chronic kidney disease probably from diabetic nephropathy. 5. Acute renal failure, prerenal, from diabetic ketoacidosis, resolved. 6. Hyperkalemia due to renal failure, improved. 7. Acute hepatitis, could be ischemic. The patient chronically does take Lipitor, slow to respond. 8. Hypertension with urgency. PLAN: We will increase patient's Lopressor to 50 mg twice a day, given 25 mg today. Will also change patient's Levemir to 40 units subcu q.h.s. starting tomorrow and patient D5W drip was discontinued late in the evening as sugar started to run on the higher side. Await further workup from GI. MMODL / IJN: [id number] /
[2018-10-07 06:40] LABS: Glucose,Whole Blood 76 mg/dL (75-99)
[2018-10-07 07:30] VITALS: PULSE 92; RESP 16; TEMP 98.2
[2018-10-07 07:31] LABS: Basophils # (A) 0.1 k/uL (0-0.2); Basophils % (A) 2 %; Eosinophils # (A) 0.5 k/uL (0-0.7); Eosinophils % (A) 9 %; HCT 38.7 % (39.0-53.0); HGB 13.1 gm/dL (13.0-17.5); Lymphocytes # (A) 1.4 k/uL (1.0-4.8); Lymphocytes % (A) 24 %; MCH 28.1 pg (25.0-35.0); MCHC 33.8 g/dL (31.0-37.0); MCV 83.3 fL (80.0-100.0); Mean Platelet Volume 8.6; Monocytes # (A) 0.3 k/uL (0-1.0); Monocytes % (A) 6 %; Neutrophils # (A) 3.5 k/uL (1.3-7.7); Neutrophils % (A) 58 %; Platelet Count 210 k/uL (150-450); RBC 4.65 m/uL (4.30-5.90); RDW 12.4 % (11.5-15.5)
[2018-10-07 07:49] LABS: INR 0.9 (<1.2); Prothrombin Time 10.1 sec (9.0-12.0)
[2018-10-07 07:53] LABS: Albumin 2.9 g/dL (3.5-5.0); Calcium 8.9 mg/dL (8.4-10.2); Potassium 4.4 mmol/L (3.5-5.1); Total Bilirubin 0.9 mg/dL (0.2-1.3); Total Protein 5.4 g/dL (6.3-8.2)
[2018-10-07] MEDS: INSULIN ASPART (NovoLOG) 100 UNIT/ML VIAL SQ SCH ×4 (07:57→12:26)
[2018-10-07] MEDS: LISINOPRIL 20 MG TAB PO SCH (08:04)
[2018-10-07] MEDS: PANTOPRAZOLE 40 MG TABLET PO SCH (08:04)
[2018-10-07] MEDS: amLODIPine 10 MG TAB PO SCH (08:04)
[2018-10-07] MEDS: TASIMELTEON 20 MG PO SCH (08:59)
[2018-10-07] MEDS ORDERED: INSULIN DETEMIR (LEVEMIR) 100 UNIT/ML SYR SQ SCH ×2 (09:00→21:00)
[2018-10-07] MEDS ORDERED: CHLORTHALIDONE 25 MG TAB PO SCH (09:00)
[2018-10-07] MEDS ORDERED: METOPROLOL TARTRATE 50 MG TAB PO SCH (09:00)
--- NOTE | 2018-10-07 10:07 | P.PN ---
Subjective Progress Note Date: 10/07/18 Principal diagnosis: Elevated liver enzymes diabetic ketoacidosis Liver function tests much improved today. Viral studies consistent previous exposure. No abdominal complaints. Afebrile. Objective - Vital Signs Vital signs: Vital Signs Temp 98.2 F 10/07/18 07:00 Pulse 92 10/07/18 07:00 Resp 16 10/07/18 07:00 BP 174/80 10/07/18 08:00 Pulse Ox 97 10/07/18 07:00 Intake & Output 10/06/18 10/07/18 10/07/18 18:59 06:59 18:59 Intake Total 390 Balance 390 Weight 81.8 kg Intake: Oral 390 Other: Voiding Method Toilet Toilet # Voids 3 - Exam General appearance: The patient is alert, oriented, in no acute distress. HET: Head is normocephalic and atraumatic. Legal blindness. Oropharynx is clear without lesions. Neck: Supple without lymphadenopathy. Trachea midline. Heart: S1 S2. Regular rate and rhythm. Lungs: No crackles or wheezes are heard. Abdomen: Soft, nontender, nondistended with bowel sounds. No peritoneal signs. No palpable organomegaly or masses. Extremities: Normal skin color and turgor. No cyanosis, rash, ulceration, clubbing, or edema. Radial and pedal pulses are 2/4 bilaterally. Neurological: No focal deficits. Strength and sensation are grossly intact. - Labs CBC & Chem 7: 10/07/18 07:02 10/07/18 07:02 Labs: Abnormal Lab Results - Last 24 Hours (Table) 10/06/18 10/06/18 10/06/18 Range/Units 04:32 11:42 16:42 Hct (39.0-53.0) % Carbon Dioxide (22-30) mmol/L Glucose (74-99) mg/dL POC Glucose (mg/dL) 70 L 324 H (75-99) mg/dL AST (17-59) U/L ALT (21-72) U/L Alkaline Phosphatase (38-126) U/L Total Protein (6.3-8.2) g/dL Albumin (3.5-5.0) g/dL EBV Capsid Ag IgG Intrp POSITIVE H (NEGATIVE) EBV Nuc Ag IgG Interp POSITIVE H (NEGATIVE) 10/06/18 10/07/18 10/07/18 Range/Units 20:06 02:57 03:16 Hct (39.0-53.0) % Carbon Dioxide (22-30) mmol/L Glucose (74-99) mg/dL POC Glucose (mg/dL) 271 H 55 L 70 L (75-99) mg/dL AST (17-59) U/L ALT (21-72) U/L Alkaline Phosphatase (38-126) U/L Total Protein (6.3-8.2) g/dL Albumin (3.5-5.0) g/dL EBV Capsid Ag IgG Intrp (NEGATIVE) EBV Nuc Ag IgG Interp (NEGATIVE) 10/07/18 10/07/18 Range/Units 07:02 07:02 Hct 38.7 L (39.0-53.0) % Carbon Dioxide 32 H (22-30) mmol/L Glucose 71 L (74-99) mg/dL POC Glucose (mg/dL) (75-99) mg/dL AST 385 H (17-59) U/L ALT 449 H (21-72) U/L Alkaline Phosphatase 259 H (38-126) U/L Total Protein 5.4 L (6.3-8.2) g/dL Albumin 2.9 L (3.5-5.0) g/dL EBV Capsid Ag IgG Intrp (NEGATIVE) EBV Nuc Ag IgG Interp (NEGATIVE) Microbiology - Last 24 Hours (Table) 10/02/18 02:06 Blood Culture - Preliminary Blood No Growth after 96 hours Assessment and Plan (1) Elevated liver enzymes Narrative/Plan: 53-year-old gentleman presents with intractable nausea vomiting acute diabetic ketoacidosis with unremarkable admission liver enzymes with new development of acute transaminitis with normal bilirubin suspect acute hepatocellular injury possible from drug induced liver injury possible ischemic possible viral possible hepatic glycopathy. LFTs have significantly improved. Current Visit: Yes Status: Acute Code(s): R74.8 - ABNORMAL LEVELS OF OTHER SERUM ENZYMES SNOMED Code(s): 966879557 (2) DKA (diabetic ketoacidoses) Current Visit: Yes Status: Acute Code(s): E13.10 - OTH DIABETES MELLITUS WITH KETOACIDOSIS WITHOUT COMA SNOMED Code(s): 490316633 (3) Type 1 diabetes mellitus Current Visit: Yes Status: Acute Code(s): E10.9 - TYPE 1 DIABETES MELLITUS WITHOUT COMPLICATIONS SNOMED Code(s): 72077871 Plan: 1. No further workup from a GI standpoint. Glycemic control. Avoid hepatotoxins. We'll follow as needed. Discharge per medicine. Assessment and plan a care discussed with Dr. Rojas
[2018-10-07 11:15] VITALS: BP 154/87
[2018-10-07 12:00] LABS: Glucose,Whole Blood 210 mg/dL (75-99)
--- NOTE | 2018-10-07 23:55 | DS ---
DISCHARGE SUMMARY DATE OF ADMISSION: 10/02/2018. DATE OF DISCHARGE: 10/07/2018. FINAL DIAGNOSES: 1. Acute diabetic ketoacidosis. 2. Diabetes mellitus type 2, chronically on insulin, uncontrolled with hypoglycemia. 3. Chronic diabetic retinopathy with poor eyesight. 4. 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 5. Acute renal failure, prerenal, from diabetic ketoacidosis, resolved. 6. Hyperkalemia due to renal failure. 7. Acute hepatitis could be ischemic. 8. Hypertensive urgency. HOSPITAL COURSE: This patient is a long-standing diabetic on insulin, who is blind. Presented with diabetic ketosis ketoacidosis. That did improve but then the patient's LFTs really went up. Could be ischemic liver it was felt, all other workup was negative. LFTs were coming down. AST peaked for example from 18 to 483, was down to 385 today. The patient's blood pressure was also running high and medications adjusted. Sugars were still running a bit low. Hence patient dose of insulin was cut back. I was very keen for the patient to stay back at least for one more day so that I could adjust his insulin further and make sure the LFTs continued to come down, but the patient was rather adamant about going home. Told him that it would be in his best interest and may even harm him. The patient understood the same but was quite firm about going home. Care was discussed in presence with his girlfriend. Discussion and discharge planning more than 35 minutes. CONSULTATION: 1. Dr. Rojas from GI. 2. Dr. Kwon from Critical Care. PHYSICAL EXAM: On examination, patient is blind. Temperature 98.2, blood pressure 154/87, hemoglobin 13.1. BUN and creatinine normal. DISCHARGE MEDICATIONS: 1. Elavil 50 mg at bedtime. 2. Lipitor 40 mg at bedtime to be held until follow up with PCP. 3. NovoLog per scale. 4. Actos 50 mg p.o. daily. 5. Hetlioz 20 mg p.o. daily. 6. Levemir 42 units subcu at bedtime. 7. Zestoretic 11/06.5 one tab p.o. b.i.d. 8. Lopressor 50 mg b.i.d. 9. Norvasc 10 mg p.o. daily. FOLLOW UP: [facility], with Ruma Miranda in 3 days, Dr. Chaka Rojas on October 13, 2018, with CMP on October 12, 2018. Hold Lipitor until follow up with PCP. MMODL / IJN: [id number] /
== END 2018-10-07 15:13 | disposition home or self-care (01) | DRG 638 ==
LOC: EC 23:42 → 2SICU 10-02 01:16 → 4SSUR 10-03 13:35
PROVIDERS: ADMIT Hospitalist; ATTEND Hospitalist
DX: E10.10 Type 1 diabetes mellitus with ketoacidosis without coma (principal); N17.9 Acute kidney failure, unspecified; E10.319 Type 1 diabetes mellitus with unspecified diabetic retinopathy without macular edema; E87.5 Hyperkalemia; E10.42 Type 1 diabetes mellitus with diabetic polyneuropathy; E10.22 Type 1 diabetes mellitus with diabetic chronic kidney disease; E10.21 Type 1 diabetes mellitus with diabetic nephropathy; K75.89 Other specified inflammatory liver diseases; N18.2 Chronic kidney disease, stage 2 (mild); H54.8 Legal blindness, as defined in USA; E86.0 Dehydration; H26.9 Unspecified cataract; D72.829 Elevated white blood cell count, unspecified; R01.1 Cardiac murmur, unspecified; I12.9 Hypertensive chronic kidney disease with stage 1 through stage 4 chronic kidney disease, or unspecified chronic kidney disease; I16.0 Hypertensive urgency; E78.5 Hyperlipidemia, unspecified; T38.3X6A Underdosing of insulin and oral hypoglycemic [antidiabetic] drugs, initial encounter; Z71.3 Dietary counseling and surveillance; Z91.138 Patient's unintentional underdosing of medication regimen for other reason; Z79.4 Long term (current) use of insulin; Z79.899 Other long term (current) drug therapy; Z97.0 Presence of artificial eye; Z83.3 Family history of diabetes mellitus; Z80.9 Family history of malignant neoplasm, unspecified
CPT/HCPCS: 36415; 71045; 74018; 76705; 80048; 80051; 80053; 80074; 81001; 82009; 82150; 82565; 82803; 82947; 83036; 83605; 83690; 83735; 84100; 84484; 84520; 85025; 85027; 85610; 86644; 86645; 86663; 86664; 86665; 87040; 87086; 93005; 93306; 96361; 96374; 99291